=== PATIENT | male | born 1940 | race Two or more races ===

== ENCOUNTER 2018-11-09 00:35 | Inpatient (IN) | payer MEDICARE, OTHER ==
[~2018-11-09] VITALS: Ht 177.8 cm; Wt 79.4 kg
--- NOTE | 2018-11-09 01:15 | NUR ---
PT BIBA FROM [facility] FOR LOW BP, VS TAKEN, BP LOW, 88/53, 63, NO FACIAL GRIMANCING, AWAKE NONVERBAL, AWAITING FOR DR CAMPOS TO EVALUATE, PLACED ON ER BED 4.
[2018-11-09] MEDS ORDERED: ASPIRIN 300 MG/SUPP.RECT RC ONE ×2 (01:30→03:23)
[2018-11-09] MEDS ORDERED: IV NS 0.9% 1,000 ML BAG IV ONE ×3 (01:30→05:00)
[2018-11-09 02:08] LABS: BASOPHILS # (AUTO) 0.1 /CMM (0.0-0.2); BASOPHILS % (AUTO) 0.5 % (0.0-2.0); EOSINOPHILS % (AUTO) 0.2 % (0.0-6.0); HEMATOCRIT 35 % (39-51); HEMOGLOBIN 11.9 g/dL (13.5-17.5); LYMPHOCYTES % (AUTO) 16.3 % (20.0-44.0); MEAN CORPUSCULAR HGB CONC 34 g/dl (31.0-36.0); MEAN CORPUSCULAR VOLUME 98 fL (80-96); MONOCYTES # (AUTO) 1.4 /CMM (0.1-1.30); MONOCYTES % (AUTO) 11.7 % (2.0-12.0); NEUTROPHILS # (AUTO) 8.7 /CMM (1.8-8.9); NEUTROPHILS % (AUTO) 71.3 % (43.0-81.0); PLATELET COUNT (AUTO) 217 /CMM (150-450); RED BLOOD CELL COUNT(AUTO) 3.63 MIL/uL (4.5-6.0); WHITE BLOOD COUNT (AUTO) 12.3 K/uL (4.3-11.0)
[2018-11-09 02:20] LABS: CALCIUM, SERUM 9.2 mg/dL (8.5-10.1); CARBON DIOXIDE 25 mmol/L (21-32); CHLORIDE 101 mmol/L (98-107); CREATININE 1.1 mg/dL (0.6-1.3); GLUCOSE 118 mg/dL (74-106); POTASSIUM 4.4 mmol/L (3.5-5.1); SODIUM SERUM 135 mmol/L (136-145); UREA NITROGEN, BLOOD 49 mg/dL (7-18)
[2018-11-09 02:26] LABS: ALANINE AMINOTRANSFERASE 45 U/L (12-78); ALBUMIN 2.3 g/dL (3.4-5.0); ALKALINE PHOSPHATASE 105 U/L (46-116); ASPARTATE AMINOTRANSFERASE 33 U/L (15-37); BILIRUBIN,DIRECT 0.2 mg/dL (0.0-0.2); BILIRUBIN,TOTAL 0.6 mg/dL (0.2-1.0); TOTAL PROTEIN, SERUM 7.7 g/dL (6.4-8.2)
[2018-11-09 02:54] LABS: APPEARANCE,URINE CLEAR (CLEAR); BILIRUBIN,URINE NEGATIVE (NEGATIVE); BLOOD, URINE NEGATIVE Ery/uL (NEGATIVE); COLOR,URINE YELLOW (YELLOW); KETONES,URINE TRACE (NEGATIVE); LEUKOCYTE ESTERASE ,URINE NEGATIVE (NEGATIVE); NITRITE, URINE NEGATIVE (NEGATIVE); PH,URINE 6.5 (5.0-8.0); PROTEIN,URINE TRACE mg/dl (NEGATIVE); UGLUCOSE NEGATIVE (NEGATIVE); UROBILINOGEN,URINE 0.2 EU/dL (0.2)
[2018-11-09 03:04] LABS: BACTERIA,URINE None seen /HPF (None Seen); RBC,URINE NONE SEEN /HPF (0-2); SQUAMOUS EPITHELIAL CELL,UR Few /HPF (None Seen); WBC,URINE 0-2 /HPF (0-3)
[2018-11-09] MEDS ORDERED: PIPERACILLIN /TAZOBACTAM 3.375 G VIAL IV ONE (04:29)
[2018-11-09] MEDS ORDERED: PIPERACILLIN /TAZOBACTAM 3.375 G in IV D5W 50 ML IV ONE (04:30)
--- NOTE | 2018-11-09 06:24 | NUR ---
PAGED DR. JOHNSON FOR ADMIT ORDERS
--- NOTE | 2018-11-09 06:25 | NUR ---
SPOKE TO DR. ALEX MASON RECEIVE NEW ORDERS READ BACK AND VERIFIED ORDERS NOTED AND CARRIED OUT PER DR. JOHNSON RESUMGini GT FEEDING AT [facility] AND HE WILL SEE THE PT AND REVIEW THE MEDICATION RECONCILIATION LATER.
[2018-11-09 06:30] VITALS: BP 118/67
--- NOTE | 2018-11-09 06:57 | NUR ---
MS RN NOTES RECEIVE PT FROM [facility] AT 0615 VIA FRANDY, ADMIT TO TELEMETRY, SR 77 WITH PVC'S PT AWAKE NON VERBAL, VS STABLE. TOLERATING ROOM AIR 98%, RESPIRATIONS EVEN AND UNLABORED, KEPT CLEAN AND DRY AND COMFORTABLE, HEAD TO TOE ASSESSMENT IS DONE. WILL ENDORSE TO THE NEXT SHIFT FOR FULL ADMISSION.
[2018-11-09] MEDS ORDERED: IV NS 0.9% 1,000 ML BAG IV PRN (07:00)
--- NOTE | 2018-11-09 07:30 | NUR ---
RN OPENING NOTES RECEIVED PATIENT IN BED SLEEPING. NONVERBAL, RESPONSIVE. IN STABLE CONDITION, NO ACUTE DISTRESS, NO SOB, NO S/S OF PAIN OR DISCOMFORT. KEPT PATIENT SAFE AND COMFORTABLE. BED IN LOW/LOCKED POSITION, SIDERAILS UPX2, CALL LIGHT IN REACH, HOB ELEVATED. WILL CONTINUE TO MONIOTR ACCORDINGLY.
[2018-11-09 08:06] VITALS: BP 129/60
--- NOTE | 2018-11-09 08:45 | NUR ---
ENDORSED TO ADÁN JOHNSON FOR CURTIS. PATIENT IN STABLE CONDITION.
--- NOTE | 2018-11-09 09:30 | NUR ---
RECEIVED REPORT FROM ADÁN MEYER
[2018-11-09] MEDS: CEFTRIAXONE 1 G in IV D5W 50 ML IV SCH (10:00)
--- NOTE | 2018-11-09 10:00 | NUR ---
PT NON-RESPONSIVE WITH OPEN EYES. VS ARE STABLE , PT ON TELE WITH SR 80-82. NO RESPIRATORY DISTRESS NOTED. NO S/S OF PAIN NOTED. PT HAS G-TUBE IN PLACE, BLEEDING ON THE SITE NOTED. CLEANED SIDE WITH NS AND APPLIED NON-WOVEN DRAIN SPONGES. WILL OBSERVE .
[2018-11-09] MEDS: JEVITY 1.2 CAL 1,000 ML BOTTLE GT PRN (10:03)
[2018-11-09] MEDS: IV NS 0.9% 1,000 ML IV PRN (10:05)
[2018-11-09] MEDS ORDERED: ARGI1POW13 GT (12:55)
[2018-11-09] MEDS ORDERED: ZINC220T PO (12:55)
[2018-11-09] MEDS ORDERED: BISA-79 PO (12:55)
[2018-11-09] MEDS ORDERED: FERR220S17 GT (12:55)
[2018-11-09] MEDS ORDERED: ASCO500T9 PO (12:55)
[2018-11-09] MEDS ORDERED: ESOM20SU GT (12:55)
[2018-11-09] MEDS ORDERED: MULT-213 PO (12:55)
--- NOTE | 2018-11-09 13:50 | NUR ---
DR. JOHNSON AT THE BEDSIDE. VERBAL ORDER FOR WOUND CONSULT AND FEEDING TUBE RATE 60ML/HR.
[2018-11-09 15:53] VITALS: BP 112/56
--- NOTE | 2018-11-09 18:43 | NUR ---
PT NON-VERBAL WITH OPEN EYES, BREATHING UNLABORED ON ROOM AIR, VS ARE STABLE, NO FEVER DURING THIS SHIFT. PT ON G-TUBE FEEDING AT 60ML/HR , IV FLUID NS RUNNING AT 50ML/HR. WOUND CONSULT REQUESTED. PT KEPT KLEEN AND DRY , TURNED AND REPOSITIONED Q2H. WILL ENDORSE TO NEXT SHIFT FOR CURTIS.
--- NOTE | 2018-11-09 19:30 | NUR ---
MS RN OPENING NOTES: RECEIVED PT ON ROOM AIR AND IS IN SEMI-ASHLEY'S POSITION. PT IS NONVERBAL BUT ABLE TO OPEN EYES. PT HAS IV ON BROOK AND IS NOTED INFILTRATED AND SWELLING. WILL REMOVE AND ELEVATE WITH PILLOW. NEW IV TO BE STARTED SOON. PT ALSO HAS G TUBE FEEDING. 5ML OF RESIDUAL NOTED. HAS BEEN FLUSHED WITH WATER. PT ON JEVITY FEEDING AT 60ML/HR. IV FLUIDS NS TO BE RESUMED AT 50ML/HR. BED KEPT IN LOW, LOCKED POSITION, AND SIDE RAILS X 2UP. BED ALARM ACTIVATED. WILL CONTINUE TO MONITOR PT.
[2018-11-09 20:07] VITALS: BP 105/66
--- NOTE | 2018-11-10 07:34 | NUR ---
MS RN CLOSING NOTES: ALL NEEDS WERE ATTENDED AND ANTICIPATED FOR. PT KEPT CLEAN, DRY, AND COMFORTABLE. BOOTS REMAINS IN BILATERAL FEET. WOUND CONSULT FOR TODAY PER MD JOHNSON. IV REMAINS INTACT AND IS BEING INFUSED WITH IV NS AT 50ML/HR. PT HAS G TUBE AND HAS BEEN FLUSHED. 5ML OF RESIDUAL NOTED. PT ON G TUBE JEVITY AT 60ML/HR. PT IN SEMI-ASHLEY'S POSITION. BED KEPT IN LOW, LOCKED POSITION, AND SIDE RAILS X 2 UP. ENDORSED TO AM NURSE FOR CURTIS.
--- NOTE | 2018-11-10 07:55 | NUR ---
RN OPENING NOTE RECEIVED PT. PT STABLE RESTING IN BED. NO S/S OF RESP DISTRESS/SOB. PT DOES NOT APPEAR TO BE IN PAIN. PT IS NON-VERBAL UNABLE TO LISTEN TO COMMAND/RESPOND. GT IN PLACE, PATENT, FEEDING OF JEVITY 1.2 RUNNING AT 60 CC/HR. IV ACCESS LOCATED ON LEFT HAND 24G, CURRENTLY INFUSING NS AT 50 ML/HR. SAFETY MEASURES IN PLACE, CALL LIGHT WITHIN REACH. WILL CONTINUE TO MONITOR.
[2018-11-10 08:00] VITALS: BP 122/57
[2018-11-10 08:07] LABS: THYROID STIMULATING HORMONE 3.76 uIU/mL (0.358-3.74); URIC ACID 3.9 mg/dL (2.6-7.2)
[2018-11-10] MEDS: CEFTRIAXONE 1 G in IV D5W 50 ML IV SCH (08:41)
[2018-11-10] MEDS: IV NS 0.9% 1,000 ML IV PRN (08:51)
--- NOTE | 2018-11-10 12:27 | NUR ---
WOUND CARE CONSULT: PT PRESENTS WITH BILATERAL LATERAL ANKLE ULCERS AND LEFT SHOULDER SCAR, PRESENT ON ADMISSION. RECOMMENDATIONS MADE FOR SKIN PROTECTION AND DISCUSSED WITH NURSING STAFF. RECOMMEND DPM CONSULT. G TUBE SITE HAS HYPERGRANULAR TISSUE. PT IS INCONTINENT AND HAS LOWER EXTREMITY CONTRACTURES. WILL SEE PRN. CURRENT CHESTER SCORE IS 13. MD IN AGREEMENT WITH PLAN OF CARE. Addendum: 11/10/18 at 1229 by VONDA DUNAWAYU Amended: Links added. Addendum: 11/10/18 at 1231 by VONDA DUNAWAYU DEFER TO DPM FOR LOWER EXTREMITY WOUND TREATMENT PLAN.
[2018-11-10] MEDS: Z GUARD REMEDY 2 OZ OINT TP SCH (12:30)
[2018-11-10] MEDS ORDERED: Z GUARD REMEDY 2 OZ OINT TP PRN (12:30)
[2018-11-10 16:05] VITALS: BP 110/60
--- NOTE | 2018-11-10 18:54 | NUR ---
RN CLOSING NOTE PT IN BED RESTING. NO S/S OF RESP DISTRESS. PT DOES NOT APPEAR TO BE IN PAIN. PER MD PULIDO PT TO HAVE BLE WOUND DEBRIDEMENT, OBTAIN CONSENT. NO FAMILY MEMBERS LISTED IN FACE SHEET. NO DPOA. WILL F/U WITH MD JOHNSON FOR OBTAINING CONSENT. ALL PT NEEDS ANTICIPATED AND MET, SAFETY MEASURES IN PLACE, CALL LLIGHT WITHIN REACH. WILL ENDORSE TO TRUCK TERMINAL MANAGER FOR CURTIS.
--- NOTE | 2018-11-10 19:20 | NUR ---
MS RN OPENING NOTE Patient was seen in bed lying in high cleveland's position; he is awake but non-verbal, responsive to touch, but cannot follow commands. NS at 50ml/hr is running through the IV in the left hand with no signs of leaking or infiltration. Jevity tube feed is running at 60ml/hr. Bilateral heels are offloaded. Patient appears comfortable in bed. Bed is low/locked for safety, three side rails up, and bed alarm on. Will continue to monitor.
[2018-11-10 20:00] VITALS: BP 142/75
[2018-11-11] MEDS: IV NS 0.9% 1,000 ML IV PRN (04:42)
[2018-11-11] MEDS: JEVITY 1.2 CAL 1,000 ML BOTTLE GT PRN ×2 (04:43→21:58)
[2018-11-11] MEDS: Z GUARD REMEDY 2 OZ OINT TP SCH (06:05)
[2018-11-11] MEDS: ALBUTEROL HALF STRENGTH 1.25 MG/3 ML VIAL.NEB NEB PRN ×2 (06:18→15:48)
--- NOTE | 2018-11-11 07:21 | NUR ---
MS RN CLOSING NOTE All patient needs attended to. Patient is comfortable in bed with no s/s of acute distress. Patient care endorsed to day shift RN.
[2018-11-11 08:00] VITALS: BP 129/82
[2018-11-11] MEDS ORDERED: HYDROGEL DRESSING 90 GM TUBE TP PRN (08:00)
[2018-11-11] MEDS: CEFTRIAXONE 1 G in IV D5W 50 ML IV SCH (08:29)
--- NOTE | 2018-11-11 09:30 | NUR ---
INFORMED PHARMACY REGARDING HYDROGEL SUPPLY, PHARMACY WILL PROVIDE
[2018-11-11] MEDS: HYDROGEL DRESSING 90 GM TUBE TP SCH (10:03)
--- NOTE | 2018-11-11 10:08 | NUR ---
MS MCCAIN NOTES RECEIVED PATIENT IN STABLE CONDITION, IN NO APPARENT DISTRESS, BED SIDE RAILS UP X2, BED IS LOCKED AND LOWERED, IV LINE IS INTACT AND PATENT, CALL LIGHT IS WITHIN REACH, WILL CONTINUE TO MONITOR PATIENT Addendum: 11/11/18 at 1010 by MERNA ABDI RN THIS NOTE IS FOR [id number]
[2018-11-11 10:49] LABS: CALCIUM, SERUM 8.4 mg/dL (8.5-10.1); CARBON DIOXIDE 21 mmol/L (21-32); CHLORIDE 108 mmol/L (98-107); CREATININE 0.8 mg/dL (0.6-1.3); GLUCOSE 113 mg/dL (74-106); POTASSIUM 4.1 mmol/L (3.5-5.1); SODIUM SERUM 141 mmol/L (136-145); UREA NITROGEN, BLOOD 30 mg/dL (7-18)
[2018-11-11 10:52] LABS: BASOPHILS % (AUTO) 0.4 % (0.0-2.0); EOSINOPHILS % (AUTO) 4.4 % (0.0-6.0); HEMATOCRIT 32 % (39-51); HEMOGLOBIN 10.7 g/dL (13.5-17.5); LYMPHOCYTES # (AUTO) 1.6 /CMM (0.8-4.8); LYMPHOCYTES % (AUTO) 19.8 % (20.0-44.0); MEAN CORPUSCULAR HGB CONC 34 g/dl (31.0-36.0); MEAN CORPUSCULAR VOLUME 98 fL (80-96); MONOCYTES # (AUTO) 0.9 /CMM (0.1-1.30); MONOCYTES % (AUTO) 10.9 % (2.0-12.0); NEUTROPHILS # (AUTO) 5.2 /CMM (1.8-8.9); NEUTROPHILS % (AUTO) 64.5 % (43.0-81.0); PLATELET COUNT (AUTO) 218 /CMM (150-450); RED BLOOD CELL COUNT(AUTO) 3.22 MIL/uL (4.5-6.0); WHITE BLOOD COUNT (AUTO) 8.1 K/uL (4.3-11.0)
[2018-11-11 12:11] LABS: *SPE A/G RATIO 0.6 (0.7-1.7); *SPE ALBUMIN 2.4 g/dL (2.9-4.4); *SPE ALPHA-1-GLOBULIN 0.4 g/dL (0.0-0.4); *SPE BETA GLOBULIN 1.3 g/dL (0.7-1.3); *SPE GLOBULIN, TOTAL 3.8 g/dL (2.2-3.9); *SPE M-SPIKE Not Observed g/dL (Not Observed); *SPEGAMMA GLOBULIN 1.1 g/dL (0.4-1.8)
[2018-11-11 16:00] VITALS: BP 108/66
[2018-11-11] MEDS: FUROSEMIDE 20 MG/2 ML VIAL IV SCH (17:02)
--- NOTE | 2018-11-11 18:45 | NUR ---
MS RN CLOSING NOTES PATIENT IS IN STABLE CONDITION. IN NO APPARENT DISTRESS. BEDSIDE RAILS ARE UPX2. BED IS LOCKED AND LOWERED. CALL LIGHT IS WITHIN REACH. IV LINE IS INTACT AND PATENT. ALL NEEDS WERE MET. WILL ENDORSE CARE TO SHOE FOLDER NURSE FOR CURTIS.
--- NOTE | 2018-11-11 19:15 | NUR ---
MS ELLIE INITIAL NOTES' RECEIVED REPORT FROM AM NURSE MERNA WHILE CHECKING THE PATIENT WELL. HE'S RESTING AT THIS TIME WITH EYES CLOSED , OPEN WHEN YOU TOUCH HIM, NON-VERBAL ,BREATHING EVEN AND NON-LABORED ,NO SIGNS OF ANY ACUTE DISTRESS NOTED, STILL ON G-TUBE FEEDING JEVITY AT 75ML/HR, NO RESIDUAL AND NO ASPIRATION NOTED. SKIN WARM AND DRY TO TOUCH. HOB ELEVATED FOR ASPIRATION PRECAUTION. BOTH UPPER AND LOWER EXTREMITIES CONTRACTED. HEPLOCK ONLY AT THIS TIME PATENT AND INTACT. KEPT HIM WARM AND COMFORTABLE AT ALL TIMES. WILL CONTINUE MONITORING. BED IN LOW AND LOCK IN POSITION WITH SIDE RAILS X2 UP.
[2018-11-11] MEDS: ALBUTEROL HALF STRENGTH 1.25 MG/3 ML VIAL.NEB NEB SCH ×2 (19:47→23:22)
[2018-11-11 20:00] VITALS: BP 107/56
[2018-11-12] MEDS: ALBUTEROL HALF STRENGTH 1.25 MG/3 ML VIAL.NEB NEB SCH ×6 (03:08→23:51)
[2018-11-12 06:12] LABS: CALCIUM, SERUM 8.2 mg/dL (8.5-10.1); CARBON DIOXIDE 24 mmol/L (21-32); CHLORIDE 108 mmol/L (98-107); CREATININE 0.9 mg/dL (0.6-1.3); GLUCOSE 130 mg/dL (74-106); POTASSIUM 4.1 mmol/L (3.5-5.1); SODIUM SERUM 140 mmol/L (136-145); UREA NITROGEN, BLOOD 30 mg/dL (7-18)
[2018-11-12 06:18] LABS: BASOPHILS % (AUTO) 0.5 % (0.0-2.0); EOSINOPHILS % (AUTO) 4.1 % (0.0-6.0); HEMATOCRIT 32 % (39-51); LYMPHOCYTES # (AUTO) 1.6 /CMM (0.8-4.8); LYMPHOCYTES % (AUTO) 19.9 % (20.0-44.0); MEAN CORPUSCULAR HGB CONC 34 g/dl (31.0-36.0); MEAN CORPUSCULAR VOLUME 99 fL (80-96); MONOCYTES # (AUTO) 0.9 /CMM (0.1-1.30); MONOCYTES % (AUTO) 11.7 % (2.0-12.0); NEUTROPHILS # (AUTO) 5.2 /CMM (1.8-8.9); NEUTROPHILS % (AUTO) 63.8 % (43.0-81.0); PLATELET COUNT (AUTO) 207 /CMM (150-450); RED BLOOD CELL COUNT(AUTO) 3.28 MIL/uL (4.5-6.0); WHITE BLOOD COUNT (AUTO) 8.1 K/uL (4.3-11.0)
--- NOTE | 2018-11-12 06:50 | NUR ---
MS COMPLETION MANAGER CLOSING NOTES PT SLEEPING AT THIS TIME , RESPIRATION EVEN AND UNLABORED NOT IN ANY ACUTE DISTRESS NOTED. G-TUBE TOLERATED WELL SAVITA THE NIGHT, NO ASPIRATION NOTED. MORNING CARE RENDERED WITH THE HELPED OF DARELL ZAMBRANO WELL SKIN CARE. REPOSITION HIM FOR COMFORT. ON SEMI FOWLERS POSITION WITH SIDE RAILS X2 UP AND BED IN LOW AND LOCK IN POSITION. KEPT HIM WARM AND COMFORTABLE AT ALL TIMES, STABLE SAVITA THE NIGHT . ENDORSE TO AM NURSE FOR CONTINUITY OF CARE.
[2018-11-12 08:00] VITALS: BP 124/68
--- NOTE | 2018-11-12 08:00 | NUR ---
RN NOTES RECEIVED PATIENT IN THE BED NONVERBAL, CONFUSED, PATIENTS EYES IS OPEN. PATIENT HAS NO ACUTE RESPIRATORY DISTRESS, COUGHING. PATIENT TOTAL CARE. RESIDUAL, AND PLACEMENT CHECKED. SCHEDULED MEDICATION ADMINISTERED VIA G-TUBE, PATIENT HAS IV ACCESS ON RIGHT HAND INTACT, ASSIST PATIENT TURN AND REPOSTION Q 2 HR, NEEDS ATTENDED AND ANTICIPATED, CALL LIGHT WITHIN TO REACH, CONTINUED MONITORING.
[2018-11-12] MEDS: FUROSEMIDE 20 MG/2 ML VIAL IV SCH (09:15)
[2018-11-12] MEDS: CEFTRIAXONE 1 G in IV D5W 50 ML IV SCH (09:16)
[2018-11-12] MEDS: Z GUARD REMEDY 2 OZ OINT TP SCH (09:19)
[2018-11-12] MEDS: HYDROGEL DRESSING 90 GM TUBE TP SCH (11:25)
[2018-11-12] MEDS ORDERED: ACETAMINOPHEN 325 MG TABLET PO PRN (11:30)
--- NOTE | 2018-11-12 11:40 | NUR ---
RN NOTES UA/UC SPACEMEN TAKEN, CALLED LAB FOR SADDLE CUTTER.
--- NOTE | 2018-11-12 11:53 | NUR ---
rn notes administered tylenol 650 mg prn via GT for fever T-99.4 F. continued monitoring.
--- NOTE | 2018-11-12 13:00 | NUR ---
RN NOTES RECHECKED T-98.7 F, PATIENT RESTING IN THE BED, ASSIST TURN AND REPOSTION Q 2 HR. HOB ELEVATED FOR ASPIRATION PRECAUTION, CALL LIGHT WITHIN TO REACH. CONTINUED MONITORING.
[2018-11-12 16:00] VITALS: BP 103/62
[2018-11-12 16:37] LABS: APPEARANCE,URINE SL CLOUDY (CLEAR); BILIRUBIN,URINE NEGATIVE (NEGATIVE); BLOOD, URINE NEGATIVE Ery/uL (NEGATIVE); COLOR,URINE YELLOW (YELLOW); KETONES,URINE NEGATIVE (NEGATIVE); LEUKOCYTE ESTERASE ,URINE NEGATIVE (NEGATIVE); NITRITE, URINE NEGATIVE (NEGATIVE); PH,URINE 6.5 (5.0-8.0); PROTEIN,URINE NEGATIVE (NEGATIVE); UGLUCOSE NEGATIVE (NEGATIVE); UROBILINOGEN,URINE 0.2 EU/dL (0.2)
[2018-11-12] MEDS: JEVITY 1.2 CAL 1,000 ML BOTTLE GT PRN (17:23)
--- NOTE | 2018-11-12 18:30 | NUR ---
RN NOTES PATIENT STABLE, NO ACUTE RESPIRATORY DISTRESS, V/S STABLE, ASSIST TURN AND REPOSTION Q 2 HR. CONTINUED JEVITY GT FEEDING AT 75 ML/HR INTACT, KEEP HOB ELEVATED. CALL LIGHT WITHIN TO REACH, NEEDS ATTENDED AND ANTICIPATED, ENDORSED ONCOMING NURSE FOR PLAN OF CARE.
--- NOTE | 2018-11-12 19:00 | NUR ---
MS ELLIE INITIAL NOTES RECEIVED REPORT FROM AM NURSE CHIVO/RN WHILE CHECKING THE PT AT THE SAME TIME, PT RESTING AT THIS TIME NON-VERBAL BUT OPEN HIS EYES WHILE YOU TOUCH HIM AND HEARD SOME SOUNDS. HE STILL ON G-TUBE FEEDING JEVITY AT 75ML/HR WITH 1 ML RESIDUAL NOTED. NO ASPIRATION , BREATHING EVEN AND UNLABORED NOT IN ANY ACUTE DISTRESS NOTED. SKIN WARM AND DRY TO TOUCH. KEPT HIM HOB ELEVATED AND WARM AT ALL TIMES. WILL CONTINUE MONITORING.
[2018-11-12 20:00] VITALS: BP 99/61
--- NOTE | 2018-11-12 23:45 | NUR ---
MS ELLIE NOTES PT SLEEPING AT THIS TIME , RESPIRATION EVEN AND UNLABORED, NOT IN ANY ACUTE DISTRESS NOTED. G-TUBE FEEDING TOLERATED WELL NO ASPIRATION NOTED.REPOSITION HIM AND KEPT HIM WARM AND COMFORTABLE AT ALL TIMES. WILL CONTINUE MONITORING.
[2018-11-13] MEDS: ALBUTEROL HALF STRENGTH 1.25 MG/3 ML VIAL.NEB NEB SCH ×5 (03:11→20:02)
[2018-11-13] MEDS: JEVITY 1.2 CAL 1,000 ML BOTTLE GT PRN ×2 (06:22→21:41)
--- NOTE | 2018-11-13 06:51 | NUR ---
MS FARM PRODUCT PURCHASER CLOSING NOTES PT SLEEPING COMFORTABLY IN BED WITH NO SIGNS OF ANY ACUTE DISTRESS NOTED. STABLE SAVITA THE NIGHT AND SLEPT WELL . G-TUBE FEEDING TOLERATED WELL NO ASPIRATION NOTED. MORNING CARE DONE AND ALL NEEDS MET. KEPT HIM WARM AND COMFORTABLE AT ALL TIMES. KEPT HIM ON SEMI FOWLERS POSITION WITH SIDE RAILS X2 UP AND BED ALARM SET FOR PT SAFETY. WILL ENDORSE TO AM NURSE FOR CONTINUITY OF CARE.
--- NOTE | 2018-11-13 07:50 | NUR ---
RN OPENING NOTES RECEIVED PT. PT STABLE AND RESTING IN BED. NO S/S OF RESP DISTRESS/SOB. NO C/O PAIN. PT IS NON-VERBAL, UNABLE TO FOLLOW COMMANDS. GT PATENT, WITH RESIDUAL <10CC OF JEVITY 1.2 FEEDING. IV FLUIDS HELD DUE TO POTENTIAL FLUID OVERLOAD INDICATED BY WHEEZING UPON AUSCULTATION, MD AWARE. SAFETY MEASURES IN PLACE, CALL LIGHT WITHIN REACH. WILL CONTINUE TO MONITOR.
[2018-11-13 08:00] VITALS: BP 132/65
[2018-11-13] MEDS: FUROSEMIDE 20 MG/2 ML VIAL IV SCH (08:57)
[2018-11-13] MEDS: CEFTRIAXONE 1 G in IV D5W 50 ML IV SCH (08:58)
[2018-11-13] MEDS: Z GUARD REMEDY 2 OZ OINT TP SCH (09:00)
[2018-11-13] MEDS: HYDROGEL DRESSING 90 GM TUBE TP SCH (09:25)
[2018-11-13] MEDS ORDERED: FEE PK DOSING 1 MIN EA MC ONE (12:15)
[2018-11-13] MEDS ORDERED: VANCOMYCIN 1 GM in IV D5W 250 ML IV ONE (13:00)
[2018-11-13 13:39] LABS: CALCIUM, SERUM 8.8 mg/dL (8.5-10.1); CARBON DIOXIDE 25 mmol/L (21-32); CHLORIDE 106 mmol/L (98-107); CREATININE 0.9 mg/dL (0.6-1.3); GLUCOSE 121 mg/dL (74-106); POTASSIUM 4.1 mmol/L (3.5-5.1); SODIUM SERUM 141 mmol/L (136-145); UREA NITROGEN, BLOOD 34 mg/dL (7-18)
[2018-11-13 16:00] VITALS: BP 119/65
--- NOTE | 2018-11-13 18:27 | NUR ---
RN CLOSING NOTE PT IN BED RESTING. NO S/S OF RESP DISTRESS/SOB. GT FEEDING INFUSING JEVITY 1.2 AT 75 CC/HR. NO RESIDUAL.. SAFETY MEASURES IN PLACE, CALL LIGHT WITHIN REACH. WILL ENDORSE TO LEAD SHIPPER FOR CURTIS.
--- NOTE | 2018-11-13 19:40 | NUR ---
RN INITIAL NOTES: RECEIVED REPORT FROM DARRELL MCCAIN. PT IN BED, AWAKE, NON VERBAL, RESPIRATION EVEN AND UNLABORED. IV ACCESS PATENT AND FLUSHING WELL, INFUSING WITH NS AT TKO. BLE OFFLOADED. GTUBE IN PLACED, RECEIVING FEEDING OF JEVITY 1.2 AT 75ML/HR. SUCTION SET UP IN PLACED. SAFETY PRECAUTIONS FOR FALL INITIATED, CALL LIGHT IN REACH, WILL CONTINUE MONITORING PT.
[2018-11-13 20:00] VITALS: BP 106/96
--- NOTE | 2018-11-13 20:30 | NUR ---
GTUBE PATENCY AND RESIDUAL CHECK: ABDOMEN SOFT TO TOUCH WITH ACTIVE BOWEL SOUND HEARD UPON AUSCULTATION OF THE ABDOMEN, NO RESIDUAL OBTAINED.
[2018-11-14] MEDS: ALBUTEROL HALF STRENGTH 1.25 MG/3 ML VIAL.NEB NEB SCH ×7 (03:40→23:26)
--- NOTE | 2018-11-14 06:44 | NUR ---
rn closing notes: pt remains be non verbal/non communicative, with periodic episode of hacking cough, breathing treatment q4h as scheduled. iv access remains patent and flushing well, on hl. ble kept offloaded. ordered kci, awaiting to be deliver. vs remains stable, needs attended. safety precautions for fall remains engaged, call light in reach, will endorse to day rn for continuity of care.
[2018-11-14 07:22] LABS: CALCIUM, SERUM 8.8 mg/dL (8.5-10.1); CARBON DIOXIDE 23 mmol/L (21-32); CHLORIDE 105 mmol/L (98-107); CREATININE 0.9 mg/dL (0.6-1.3); GLUCOSE 133 mg/dL (74-106); POTASSIUM 4.4 mmol/L (3.5-5.1); SODIUM SERUM 139 mmol/L (136-145); UREA NITROGEN, BLOOD 37 mg/dL (7-18)
--- NOTE | 2018-11-14 07:46 | NUR ---
MS RN OPENING NOTES RECEIVED PATIENT IN STABLE CONDITION. IN NO APPARENT DISTRESS. BEDSIDE RAILS ARE UPX2. BED IS LOCKED AND LOWERED. CALL LIGHT IS WITHIN REACH. G TUBE FEEDING RUNNING AT 75MLS/HR. IV LINE IS INTACT AND PATENT. ALL NEEDS WERE MET. WILL CONTINUE TO MONITOR PATIENT.
[2018-11-14 08:00] VITALS: BP 85/62
[2018-11-14] MEDS: FUROSEMIDE 20 MG/2 ML VIAL IV SCH (09:00)
[2018-11-14] MEDS: Z GUARD REMEDY 2 OZ OINT TP SCH (09:21)
[2018-11-14] MEDS: HYDROGEL DRESSING 90 GM TUBE TP SCH (09:21)
[2018-11-14] MEDS: VANCOMYCIN 1.25 GM in IV D5W 250 ML IV SCH ×3 (13:00)
[2018-11-14 16:00] VITALS: BP 129/73
[2018-11-14] MEDS: JEVITY 1.2 CAL 1,000 ML BOTTLE GT PRN (17:16)
--- NOTE | 2018-11-14 18:28 | NUR ---
MS RN CLOSING NOTES PATIENT IS IN STABLE CONDITION. IN NO APPARENT DISTRESS. BEDSIDE RAILS ARE UPX2. BED IS LOCKED AND LOWERED. CALL LIGHT IS WITHIN REACH. IV LINE IS INTACT AND PATENT. WILL ENDORSE CARE TO AMPOULE FILLER AND SEALER NURSE FOR CURTIS.
[2018-11-14 20:00] VITALS: BP 99/47
[2018-11-15] MEDS: VANCOMYCIN 1.25 GM in IV D5W 250 ML IV SCH (01:54)
[2018-11-15] MEDS: ALBUTEROL HALF STRENGTH 1.25 MG/3 ML VIAL.NEB NEB SCH ×4 (04:56→15:18)
--- NOTE | 2018-11-15 07:57 | NUR ---
MS RN NOTES PATIENT RECEIVED RESTING INSIDE ROOM. SLEEPING, AROUSABLE THROUGH VERBAL AND TACTILE STIMULI. OPENS EYE-S TO STIMULI. PATIENT NON-VERBAL. BREATHING EVEN AND UNLABORED. NO ACUTE DISTRESS NOTED. GT PATENT AND IN PLACE. ONGOING GTF. MAINTAINED ASPIRATION PRECAUTIONS. WILL CONTINUE TO MONITOR. BED LOCKED AND IN LOW POSITION. BILATERAL UPPER SIDE RAILS UP AND LOCKED. CALL LIGHT WITHIN EASY REACH
[2018-11-15 08:00] VITALS: BP 105/60
[2018-11-15 08:01] LABS: CALCIUM, SERUM 8.2 mg/dL (8.5-10.1); CARBON DIOXIDE 23 mmol/L (21-32); CHLORIDE 105 mmol/L (98-107); CREATININE 0.9 mg/dL (0.6-1.3); GLUCOSE 123 mg/dL (74-106); POTASSIUM 4.4 mmol/L (3.5-5.1); SODIUM SERUM 138 mmol/L (136-145); UREA NITROGEN, BLOOD 36 mg/dL (7-18)
[2018-11-15] MEDS: FUROSEMIDE 20 MG/2 ML VIAL IV SCH (08:54)
[2018-11-15] MEDS: Z GUARD REMEDY 2 OZ OINT TP SCH (08:56)
[2018-11-15] MEDS: HYDROGEL DRESSING 90 GM TUBE TP SCH (08:57)
[2018-11-15] MEDS ORDERED: VANCOMYCIN IV SCH ×2 (12:00→13:00)
[2018-11-15] MEDS ORDERED: [UNRECOGNIZED DRUG - OTHER] IV SCH ×2 (12:00→13:00)
[2018-11-15] MEDS ORDERED: VANCOMYCIN 1.25 GM in IV D5W 500 ML IV SCH ×2 (12:00→13:00)
[2018-11-15 16:00] VITALS: BP 120/62
--- NOTE | 2018-11-15 16:11 | NUR ---
MS RN NOTES PATIENT FOR DISCHARGE TODAY. RECEIVED CALL FROM ENGINEERING MODEL MAKER THAT PATIENT WILL BE TRANSFERRED BACK TO [facility]. PLACED CALL TO [facility] ([phone]) AND GAVE REPORT TO TRINIDAD MCCAIN.
[2018-11-15 16:30] VITALS: BP 101/60
--- NOTE | 2018-11-15 16:49 | NUR ---
MS RN NOTES PATIENT FOR DISCHARGE TODAY. TRANSPORTATION PRESENT AT UNIT AT 1635. REPORT GIVEN. ALL BELONGINGS COMPLETE ON DISCHARGE, NO MISSING INVENTORY. NO ACUTE DISTRESS NOTED. NO COMPLAIN OF PAIN OR FACIAL GRIMACE NOTED. PATIENT LEFT UNIT AT 1645 IN STABLE CONDITION. NO NEW SKIN BREAKDOWN NOTED. MD AWARE OF DSICHARGE
== END 2018-11-15 16:50 | DRG 871 ==
LOC: ER 00:37 → TELE 05:31 → EDBD 05:31 → MED 09:00
PROVIDERS: ADMIT Internal Medicine; ATTEND Internal Medicine
DX: A41.9 Sepsis, unspecified organism (principal); L89.513 Pressure ulcer of right ankle, stage 3; L89.523 Pressure ulcer of left ankle, stage 3; J69.0 Pneumonitis due to inhalation of food and vomit; R53.2 Functional quadriplegia; N17.9 Acute kidney failure, unspecified; G93.40 Encephalopathy, unspecified; R64 Cachexia; F02.80 Dementia in other diseases classified elsewhere, unspecified severity, without behavioral disturbance, psychotic disturbance, mood disturbance, and anxiety; G30.9 Alzheimer's disease, unspecified; D63.8 Anemia in other chronic diseases classified elsewhere; E78.5 Hyperlipidemia, unspecified; I25.10 Atherosclerotic heart disease of native coronary artery without angina pectoris; K21.9 Gastro-esophageal reflux disease without esophagitis; M24.562 Contracture, left knee; M24.561 Contracture, right knee; I10 Essential (primary) hypertension; Z93.1 Gastrostomy status; Z68.25 Body mass index [BMI] 25.0-25.9, adult
CPT/HCPCS: 36415; 71045-TC; 80048-TC; 80076-TC; 80202-TC; 81000-TC; 82378; 82728-TC; 83540-TC; 83605-TC; 83615-TC; 84155; 84165; 84443-TC; 84484-TC; 84550-TC; 85025-TC; 85045-TC; 85652-TC; 85730-TC; 87040-TC; 87081-TC; 87086-TC; 87186-TC; 87400; 94760-TC; A4606; A6248; A6402; A6403; G0378; J0696; J1940; J2543; J3370; J7030; J7060; Z7610

== ENCOUNTER 2019-03-03 16:55 | Inpatient (IN) | payer MEDICARE, OTHER ==
[~2019-03-03] VITALS: Ht 180.3 cm; Wt 74.8 kg
[~2019-03-03 16:55] MED LIST: ARGI1POW13 GT; ASCO500T9 PO; BISA-79 PO; ESOM20SU GT; FERR220S18 GT; MULT-213 PO; ZINC220T PO
--- NOTE | 2019-03-03 17:02 | NUR ---
PT [id number], RESPIRATORY DISTRESS, ON CPAP, NOTED RESPIRATORY DISTRESS, HOOKED TO DATA MODELING SPECIALIST, RT AT BEDSIDE FOR BIPAP SET UP, KEPT RESTED AND COMFORTABLE, WILL CONTINUE TO MONITOR.
--- NOTE | 2019-03-03 17:10 | NUR ---
DR. CAMPOS AT BEDSIDE FOR EVAL.
[2019-03-03 17:17] VITALS: BP 110/58
--- NOTE | 2019-03-03 17:17 | NUR ---
RT NOTE: LATE ENTRY- PATIENT NT SUCTIONED TO OBTAIN LARGE AMOUNT OF THICK YELLOW/RUBALCAVA SECRETIONS. PER , PATIENT PLACED ON BIPAP. PATIENT TOLERATING WELL. ALARMS SET AND AUDIBLE. AMBU BAG AT [facility].
[2019-03-03] MEDS ORDERED: PIPERACILLIN /TAZOBACTAM 3.375 G in IV D5W 50 ML IV ONE (17:30)
[2019-03-03 17:35] LABS: BASOPHILS % (AUTO) 0.2 % (0.0-2.0); EOSINOPHILS % (AUTO) 1.1 % (0.0-6.0); HEMATOCRIT 38 % (39-51); HEMOGLOBIN 12.4 g/dL (13.5-17.5); LYMPHOCYTES # (AUTO) 1.1 /CMM (0.8-4.8); LYMPHOCYTES % (AUTO) 8.6 % (20.0-44.0); MEAN CORPUSCULAR HGB CONC 33 g/dl (31.0-36.0); MEAN CORPUSCULAR VOLUME 95 fL (80-96); MONOCYTES # (AUTO) 0.4 /CMM (0.1-1.30); MONOCYTES % (AUTO) 3.4 % (2.0-12.0); NEUTROPHILS # (AUTO) 11.2 /CMM (1.8-8.9); NEUTROPHILS % (AUTO) 86.7 % (43.0-81.0); PLATELET COUNT (AUTO) 354 /CMM (150-450); WHITE BLOOD COUNT (AUTO) 12.9 K/uL (4.3-11.0)
--- NOTE | 2019-03-03 17:35 | NUR ---
ER PHLEB AT BEDSIDE FOR BLOOD DRAW.
--- NOTE | 2019-03-03 17:40 | NUR ---
URINE SPECIMEN COLLECTED VIA ZAMORA CATH.
[2019-03-03 17:41] LABS: APPEARANCE,URINE Clear (CLEAR); BILIRUBIN,URINE Negative (NEGATIVE); BLOOD, URINE Negative Ery/uL (NEGATIVE); COLOR,URINE Yellow (YELLOW); KETONES,URINE Negative (NEGATIVE); LEUKOCYTE ESTERASE ,URINE Negative (NEGATIVE); NITRITE, URINE Negative (NEGATIVE); PH,URINE 7.5 (5.0-8.0); PROTEIN,URINE 30 mg/dl (NEGATIVE); UGLUCOSE Negative (NEGATIVE); UROBILINOGEN,URINE 0.2 EU/dL (0.2)
[2019-03-03 17:54] LABS: ALANINE AMINOTRANSFERASE 29 U/L (12-78); ALBUMIN 2.8 g/dL (3.4-5.0); ALKALINE PHOSPHATASE 122 U/L (46-116); ASPARTATE AMINOTRANSFERASE 29 U/L (15-37); BILIRUBIN,DIRECT 0.1 mg/dL (0.0-0.2); BILIRUBIN,TOTAL 0.3 mg/dL (0.2-1.0); CALCIUM, SERUM 9.5 mg/dL (8.5-10.1); CARBON DIOXIDE 28 mmol/L (21-32); CHLORIDE 101 mmol/L (98-107); CREATININE 1.1 mg/dL (0.6-1.3); GLUCOSE 157 mg/dL (74-106); POTASSIUM 4.6 mmol/L (3.5-5.1); SODIUM SERUM 136 mmol/L (136-145); TOTAL PROTEIN, SERUM 8.8 g/dL (6.4-8.2); UREA NITROGEN, BLOOD 33 mg/dL (7-18)
[2019-03-03 19:07] LABS: ABG BASE EXCESS 0.3 mmol/L; ABG OXYGEN SATURATION 93.8 % (92.0-98.5); ABG PCO2 41.5 mmHg (35.0-45.0); ABG PO2 76.3 mmHg (75.0-100.0); AaDO2 305.9 mmHg; COHb 0.1 % (0.5-1.5); MetHb 0.5 % (0.0-1.5); O2Hb 93.2 % (94.0-97.0)
[2019-03-03 19:10] VITALS: BP 134/77
--- NOTE | 2019-03-03 19:21 | NUR ---
REPORT GIVEN TO ADÁN VAZQUEZ FOR CURTIS.
[2019-03-03] MEDS ORDERED: IV NS 0.9% 500 ML BAG IV ONE (19:30)
[2019-03-03] MEDS ORDERED: IV NS 0.9% 1,000 ML BAG IV ONE ×2 (19:30)
--- NOTE | 2019-03-03 19:47 | NUR ---
CALLED NURSING SUP. FOR KIRSTIE BED
[2019-03-03] MEDS ORDERED: FURO20TA4 PO (19:55)
[2019-03-03] MEDS ORDERED: LANS30CA56 GT (19:55)
[2019-03-03] MEDS ORDERED: FERR300L GT (19:55)
[2019-03-03] MEDS ORDERED: APIX2.5T GT (19:55)
[2019-03-03] MEDS ORDERED: AMLO2.5T4 GT (19:55)
[2019-03-03] MEDS ORDERED: DIGO125T GT (19:55)
[2019-03-03] MEDS ORDERED: LACT-96 GT (19:55)
[2019-03-03] MEDS ORDERED: AMIN30LI27 GT (19:55)
--- NOTE | 2019-03-03 20:09 | NUR ---
KIRSTIE 105
[2019-03-03 20:40] VITALS: BP 136/73
--- NOTE | 2019-03-03 21:00 | NUR ---
KIRSTIE SUPERVISOR GROVE NOTES RECEIVED PATIENT FROM ER VIA [facility]. PATIENT OBTUNDED, OPENS EYES, NONVERBAL. PATIENT CURRENTLY ON BIPAP, BUT IS TACHYPNEIC. PER ER REPORT, THIS IS PATIENT'S BASELINE SINCE ARRIVAL, SPO2 WNL, WILL MONITOR CLOSELY. PATIENT WITH LEFT HAND #[id number], 2 LITERS FROM 2.5 LITER BOLUS FROM ER TO FINISH INFUSING NOW.
--- NOTE | 2019-03-03 21:30 | NUR ---
RN NOTES CALLED AND SPOKE TO DR MARLON JOHNSON TO OBTAIN ADMISSION ORDERS. ALL ORDERS READ BACK FOR CLARIFICATION. WILL CARRY OUT ALL NEW ORDERS AND MONITOR CLOSELY
[2019-03-03] MEDS ORDERED: ALBUTEROL HALF STRENGTH 1.25 MG/3 ML VIAL.NEB NEB PRN (22:00)
[2019-03-03] MEDS ORDERED: DOXYCYCLINE HYCLATE (100 MG) 100 MG TABLET GT SCH (23:00)
[2019-03-03] MEDS ORDERED: DOXYCYCLINE HYCLATE (100 MG) 100 MG TABLET GT ONE (23:00)
--- NOTE | 2019-03-03 23:00 | NUR ---
RN NOTES RECEIVED CALL FROM PHARMACY, SPOKE TO PIERRE REGARDING MEDICATIONS ELIQUIS AND DOXYCYCLINE. PER PIERRE, OKAY TO FOLLOW UP WITH MD WHEN HE ARRIVES AT BEDSIDE FOR EVALUATION TO CLARIFY ORDERS
[2019-03-03] MEDS ORDERED: CEFTRIAXONE 1 G VIAL ONE (23:23)
[2019-03-03] MEDS: CEFTRIAXONE 1 G in IV D5W 50 ML IV SCH (23:29)
[2019-03-03] MEDS: METOCLOPRAMIDE HCL 10 MG/2 ML VIAL IV SCH (23:29)
[2019-03-04] VITALS (7 sets, daily range): BP systolic 100–136; BP diastolic 43–69
[2019-03-04] MEDS: METOCLOPRAMIDE HCL 10 MG/2 ML VIAL IV SCH ×4 (05:32→23:05)
[2019-03-04] MEDS: JEVITY 1.2 CAL 1,000 ML BOTTLE GT PRN (05:33)
[2019-03-04 06:25] LABS: ALANINE AMINOTRANSFERASE 26 U/L (12-78); ALBUMIN 2.2 g/dL (3.4-5.0); ALKALINE PHOSPHATASE 83 U/L (46-116); ASPARTATE AMINOTRANSFERASE 37 U/L (15-37); B-TYPE NATRIURETIC PEPTIDE 15433 PG/ML (0-125); BILIRUBIN,TOTAL 0.4 mg/dL (0.2-1.0); CALCIUM, SERUM 9.1 mg/dL (8.5-10.1); CARBON DIOXIDE 23 mmol/L (21-32); CHLORIDE 106 mmol/L (98-107); CREATININE 1.4 mg/dL (0.6-1.3); GLUCOSE 97 mg/dL (74-106); POTASSIUM 5.1 mmol/L (3.5-5.1); SODIUM SERUM 142 mmol/L (136-145); TOTAL PROTEIN, SERUM 7.3 g/dL (6.4-8.2); UREA NITROGEN, BLOOD 37 mg/dL (7-18)
--- NOTE | 2019-03-04 06:30 | NUR ---
RN NOTES RECEIVED CALL FROM LAB REGARDING LACTIC ACID LEVEL OF 6.0, ELEVATED FROM 3.0. HR REMAINS IN THE 80s, NO FEVER NOTED. CHARGE NURSE NOTIFIED. CALLED LAB FOR STAT REDRAW (NOT REFLEX) TO CONFIRM LACTIC ACID LEVEL.
[2019-03-04 07:13] LABS: BASOPHILS % (AUTO) 0.2 % (0.0-2.0); HEMATOCRIT 30 % (39-51); HEMOGLOBIN 9.8 g/dL (13.5-17.5); LYMPHOCYTES # (AUTO) 0.7 /CMM (0.8-4.8); LYMPHOCYTES % (AUTO) 5.8 % (20.0-44.0); MEAN CORPUSCULAR HGB CONC 33 g/dl (31.0-36.0); MEAN CORPUSCULAR VOLUME 96 fL (80-96); MONOCYTES # (AUTO) 0.7 /CMM (0.1-1.30); MONOCYTES % (AUTO) 5.5 % (2.0-12.0); NEUTROPHILS # (AUTO) 10.9 /CMM (1.8-8.9); NEUTROPHILS % (AUTO) 88.5 % (43.0-81.0); PLATELET COUNT (AUTO) 285 /CMM (150-450); RED BLOOD CELL COUNT(AUTO) 3.16 MIL/uL (4.5-6.0); WHITE BLOOD COUNT (AUTO) 12.3 K/uL (4.3-11.0)
--- NOTE | 2019-03-04 07:49 | NUR ---
RT Pt taken off BiPAP and placed on 4L nasal cannula, tolerating well at this time. PRN HHN tx given due to slight expiratory wheezes. HHN tx tolerated well with no adverse reactions. Pt appears to be comfortable at this time with no SOB or respiratory distress. Charge nurse Moriah notified and aware. Addendum: 03/04/19 at 0751 by COLLEEN CUBA RT Amended: Links added.
[2019-03-04] MEDS ORDERED: PANTOPRAZOLE 40 MG/PACK PACK NG SCH (09:00)
[2019-03-04] MEDS ORDERED: IV D5/ 0.9% NACL 1,000 ML IV PRN (09:30)
--- NOTE | 2019-03-04 09:30 | NUR ---
TD/RN AM SHIFT INITIAL NOTES RECEIVED PT ASLEEP IN BED, NO ACUTE CHANGE OF CONDITION NOTED, PT NON-VERBAL NO GRIMACING NOTED, ON VENTURI MASK WITH 35% FIO2, LUNG SOUNDS RHONCHI. ON TELE MONITORING WITH SINUS RHYTHM, HR 100%. IV SITE ON TKO, PATENT WITH NO S/S OF INFECTION. ON GOING GT FEEDING @ 40CC/HR, NO GASTRIC RESIDUAL NOTED, FLUSHED, PATENT. PT IS COMFORTABLE, SCHEDULED AM MEDS TO BE GIVEN, CL WITHIN REACHED AND SAFETY MAINTAINED. ON GOING MONITORING. Addendum: 03/04/19 at 1058 by PHYLLIS GERMAIN RN ADDENDUM: ZAMORA CATHETER INTACT WITH CLEAR YELLOW URINE OUTPUT. Addendum: 03/04/19 at 1127 by PHYLLIS GERMAIN RN ERROR IN CHARTING: PT RECEIVED WITH G-TUBE FEEDING @ 10CC/HR.
[2019-03-04] MEDS: PANTOPRAZOLE 40 MG/PACK PACK GT SCH (09:47)
[2019-03-04] MEDS: AMLODIPINE BESYLATE 2.5 MG TABLET GT SCH (09:47)
[2019-03-04] MEDS: APIXABAN 2.5 MG TABLET GT SCH ×2 (10:16→18:02)
--- NOTE | 2019-03-04 11:11 | NUR ---
TELE1/RN ROUNDS - DR. JOHNSON UPDATED PT'S CONDITION. PT SEEN & EXAMINED BY DR. JOHNSON, WITH NEW ORDERS TO CHANGE IV FLUIDS TO NS WITH SAME RATE @ 75CC/HR, ORDER NOTED AND CARRIED OUT.
[2019-03-04] MEDS: DOXYCYCLINE HYCLATE (100 MG) 100 MG TABLET GT SCH ×2 (11:32→23:05)
[2019-03-04] MEDS: IV NS 0.9% 1,000 ML IV PRN (11:33)
[2019-03-04] MEDS: ACETYLCYSTEINE 10% SOLN 400 MG/4 ML VIAL NEB SCH ×3 (11:36→23:05)
--- NOTE | 2019-03-04 14:36 | NUR ---
RT Pt placed back on BiPAP due to increased WOB. Mepilex is in place on bridge of nose for skin protection. BiPAP alarms are set and audible with BVM by bedside. BiPAP is plugged into red outlet. Pt appears to be more comfortable on BiPAP at this time. ADÁN Castillo notified and aware. Addendum: 03/04/19 at 1455 by COLLEEN CUBA RT Amended: Links added.
[2019-03-04] MEDS: ALBUTEROL HALF STRENGTH 1.25 MG/3 ML VIAL.NEB NEB SCH ×2 (14:37→19:44)
--- NOTE | 2019-03-04 14:41 | NUR ---
TELE1/RN BACK TO BI-PAP RT PLACED PATIENT BACK TO BI-PAP, MONITORING CONTINUED.
[2019-03-04] MEDS ORDERED: Z GUARD REMEDY 2 OZ OINT TP PRN (16:00)
--- NOTE | 2019-03-04 19:19 | NUR ---
SAW FILER NOTE REPORT GIVEN BEDSIDE. PATIENT IN BED OBTUNDED ON BI-PAP. PATIENT SATURATION 97% PT HAS NO S/S OF ACUTE DISTRESS. PATIENT HR SR IN THE 90'S. PATIENT READJUSTED FOR COMFORT. HOB 45 DEGREES. MIDLINE PATENT AND INTACT. NO S/S OF INFECTIONS. RN WILL CONTINUE TO MONITOR. SAFETY PRECAUTIONS IN PLACE.
[2019-03-04] MEDS: BISACODYL (5 MG) 5 MG TABLET.DR GT SCH (23:00)
[2019-03-04] MEDS: CEFTRIAXONE 1 G in IV D5W 50 ML IV SCH (23:03)
[2019-03-05] VITALS: BP 127/64
--- NOTE | 2019-03-05 00:45 | NUR ---
COUNTER HELPER NOTE PATIENT HAD EPISODE OF TACHY HR HIGH 140. EPISODE LASTED SEVERAL MINUTES AND HR DECREASE TO NORMAL RANGE. MD JOHNSON CALLED TO NOTIFY. AWARE NO NEW ORDERS GIVEN.
[2019-03-05] MEDS: ALBUTEROL HALF STRENGTH 1.25 MG/3 ML VIAL.NEB NEB SCH ×4 (01:04→19:44)
--- NOTE | 2019-03-05 03:28 | NUR ---
GRINDING WHEEL OPERATOR NOTE PATIENT NOTED TO HAVE 5 MIN LONG SEIZURE. [employer] [place] DRIVER ENGINEERING TEAM SUPERVISOR FOR MD JOHNSON NOTIFIED, ORDERED ATIVAN IMG Q2HR PRN. PATIENT VS STABLE POST SEIZURE.
[2019-03-05] MEDS: IV NS 0.9% 1,000 ML IV PRN ×2 (03:40→18:13)
[2019-03-05 04:30] VITALS: BP 142/71
[2019-03-05] MEDS: METOCLOPRAMIDE HCL 10 MG/2 ML VIAL IV SCH ×4 (05:26→23:35)
--- NOTE | 2019-03-05 05:32 | NUR ---
OXYGEN THERAPY TECHNICIAN NOTE TRANSITION MANAGER PRESENT CXR TAKEN ORDERED
[2019-03-05] MEDS: LORAZEPAM INJ 2 MG/ML VIAL IV PRN ×2 (05:41→21:51)
--- NOTE | 2019-03-05 07:24 | NUR ---
SIGNAL TESTER NOTE PATIENT TOLERATED THE NIGHT. PATIENT HAD 2 SEIZURES MANAGED BY ATIVAN. PATIENT TOLERATING BIPAP. HR IN THE 90'S. ENDORSED POC TO AM FOR CURTIS. SAFETY PRECAUTIONS IN PLACE.
--- NOTE | 2019-03-05 07:46 | NUR ---
NURSE MANAGER OPENING NOTE PATIENT RECEIVED IN BED ON BI-PAP. PATIENT OBTUNDED, SATURATION 99% .PT HAS NO S/S OF ACUTE DISTRESS. PATIENT HR SR IN THE 90'S. HOB 45 DEGREES. BROOK MIDLINE PATENT AND INTACT. L HAND SL INTACT AND PATENT. NO S/S OF INFECTIONS. SAFETY PRECAUTIONS IN PLACE, BED IN LOW LOCKED POSITION. CALL LIGHT WITHIN REACH. WILL CONTINUE TO MONITOR.
[2019-03-05 08:00] VITALS: BP 109/44
[2019-03-05] MEDS: ACETYLCYSTEINE 10% SOLN 400 MG/4 ML VIAL NEB SCH ×2 (08:39→13:07)
[2019-03-05] MEDS: BISACODYL (5 MG) 5 MG TABLET.DR GT SCH (09:21)
[2019-03-05] MEDS: PANTOPRAZOLE 40 MG/PACK PACK GT SCH (09:21)
[2019-03-05] MEDS: AMLODIPINE BESYLATE 2.5 MG TABLET GT SCH (09:26)
[2019-03-05] MEDS: APIXABAN 2.5 MG TABLET GT SCH ×2 (09:31→17:10)
--- NOTE | 2019-03-05 09:37 | NUR ---
ACADEMIC PROGRAM SPECIALIST NOTE PATIENT BP RECHECKED BEFORE GIVING BP MEDS. BP 143/62 @ 0930. BP MEDICATION GIVEN PRESCIBED.
--- NOTE | 2019-03-05 10:12 | NUR ---
HYDROGEOLOGIST NOTE RN NOTIFIED RT OF MD ORDER TO TITRATE DOWN PATIENT FIO2 SETTINGS.
[2019-03-05] MEDS: DOXYCYCLINE HYCLATE (100 MG) 100 MG TABLET GT SCH ×2 (11:15→23:35)
[2019-03-05 12:00] VITALS: BP 119/47
[2019-03-05 16:00] VITALS: BP 120/62
--- NOTE | 2019-03-05 17:08 | NUR ---
fio2 increased from 50% to 100% due to spo2 84 - 87%. charge nurse notified. Addendum: 03/05/19 at 1711 by YANA ROBERTSON RT Amended: Links added.
--- NOTE | 2019-03-05 19:20 | NUR ---
AQUATICS INSTRUCTOR NOTE REPORT GIVEN BEDSIDE. PATIENT OBTUNDED. PATIENT SATURATING 100% ON BIPAP. MARKED NOTICED DIFFERENCE IN WOB. CLAVICULAR RETRACTIONS DECREASED. PATIENT HR SR ON THE MONITOR. NO S/S OF DISTRESS. PATIENT REPOSITIONED FOR COMFORT. RN WILL CONTINUE TO MONITOR.
[2019-03-05 20:00] VITALS: BP 115/63
[2019-03-05] MEDS ORDERED: MUPIROCIN OINT 2% 22 GM TUBE SCH (21:00)
--- NOTE | 2019-03-05 21:54 | NUR ---
ELEMENTARY SUBSTITUTE TEACHER NOTE RT AT BEDSIDE NOTED HIGH RR. ATIVAN GIVEN PER MD PRN ORDER.
[2019-03-05] MEDS: CEFTRIAXONE 1 G in IV D5W 50 ML IV SCH (23:42)
[2019-03-06] VITALS: BP 114/62
[2019-03-06] MEDS: ACETYLCYSTEINE 10% SOLN 400 MG/4 ML VIAL NEB SCH ×3 (00:19→13:35)
[2019-03-06] MEDS: ALBUTEROL HALF STRENGTH 1.25 MG/3 ML VIAL.NEB NEB SCH ×4 (02:26→20:34)
[2019-03-06 04:00] VITALS: BP 128/71
[2019-03-06] MEDS: LORAZEPAM INJ 2 MG/ML VIAL IV PRN ×2 (05:16→23:13)
[2019-03-06] MEDS: METOCLOPRAMIDE HCL 10 MG/2 ML VIAL IV SCH ×4 (05:16→23:13)
--- NOTE | 2019-03-06 05:18 | NUR ---
CHANGE MANAGEMENT NOTE PATIENT HR INCREASED TO 120, AND SATURATION DECREASED TO 69 WITH PALLOR AND MINOR CYANOSIS AFTER REPOSITIONING AND CLEANING. INCREASED PT FIO2 TO 100%. V/S AND SKIN TONE RETURNED TO NORMAL.
--- NOTE | 2019-03-06 07:04 | NUR ---
received on 50% fio2 with spo2 88% to 94%. fio2 increase from 50% to 100% due to low spo2. rn aware on vent changes made. Addendum: 03/06/19 at 0804 by YANA ROBERTSON RT Amended: Links added.
[2019-03-06 08:00] VITALS: BP 165/86
--- NOTE | 2019-03-06 08:00 | NUR ---
fio2 titrate down from 100% to 60% with spo2 96% to 98%. rn notified. Addendum: 03/06/19 at 0800 by YANA ROBERTSON RT Amended: Links added.
[2019-03-06] MEDS: PANTOPRAZOLE 40 MG/PACK PACK GT SCH (08:05)
[2019-03-06] MEDS: APIXABAN 2.5 MG TABLET GT SCH ×2 (08:09→18:11)
--- NOTE | 2019-03-06 09:01 | NUR ---
GEOTHERMAL PRODUCTION MANAGER OPENING NOTE PATIENT RECEIVED IN BED ON BI-PAP. 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 PT HAS NO S/S OF ACUTE DISTRESS. SR 90-100 ON TELE. HOB 45 DEGREES. BROOK MIDLINE PATENT AND INTACT. NO S/S OF INFECTIONS. SAFETY PRECAUTIONS IN PLACE, BED IN LOW LOCKED POSITION. CALL LIGHT WITHIN REACH. WILL CONTINUE TO MONITOR.
[2019-03-06 09:44] LABS: ALANINE AMINOTRANSFERASE 22 U/L (12-78); ALKALINE PHOSPHATASE 90 U/L (46-116); ASPARTATE AMINOTRANSFERASE 22 U/L (15-37); BILIRUBIN,TOTAL 0.4 mg/dL (0.2-1.0); CALCIUM, SERUM 8.9 mg/dL (8.5-10.1); CARBON DIOXIDE 27 mmol/L (21-32); CHLORIDE 113 mmol/L (98-107); CREATININE 0.8 mg/dL (0.6-1.3); GLUCOSE 118 mg/dL (74-106); SODIUM SERUM 147 mmol/L (136-145); TOTAL PROTEIN, SERUM 6.8 g/dL (6.4-8.2); UREA NITROGEN, BLOOD 28 mg/dL (7-18)
[2019-03-06] MEDS: BISACODYL (5 MG) 5 MG TABLET.DR GT SCH (10:05)
[2019-03-06] MEDS: DOXYCYCLINE HYCLATE (100 MG) 100 MG TABLET GT SCH ×2 (11:08→23:31)
[2019-03-06 12:00] VITALS: BP 120/74
[2019-03-06] MEDS: IV NS 0.9% 1,000 ML IV PRN (15:24)
[2019-03-06 16:00] VITALS: BP 124/57
[2019-03-06] MEDS: LACTOBACILLUS RHAMNOSUS GG 1 EACH CAP.SPRINK GT SCH (18:10)
[2019-03-06 20:00] VITALS: BP 127/52
--- NOTE | 2019-03-06 20:33 | NUR ---
HARVEST WORKER FIELD CROP CLOSING NOTE PATIENT IN BED ON BI-PAP. 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 PT HAS NO S/S OF ACUTE DISTRESS. SR 90-100 ON TELE. HOB 45 DEGREES. BROOK MIDLINE PATENT AND INTACT. NO S/S OF INFECTIONS. SAFETY PRECAUTIONS IN PLACE, BED IN LOW LOCKED POSITION. CALL LIGHT WITHIN REACH. CARE ENDORSED TO CUT OUT MACHINE OPERATOR RN.
[2019-03-06] MEDS: CEFTRIAXONE 1 G in IV D5W 50 ML IV SCH (23:15)
[2019-03-07] VITALS: BP 139/81
[2019-03-07] MEDS: ALBUTEROL HALF STRENGTH 1.25 MG/3 ML VIAL.NEB NEB SCH ×4 (00:34→19:41)
[2019-03-07] MEDS: ACETYLCYSTEINE 10% SOLN 400 MG/4 ML VIAL NEB SCH ×4 (00:34→23:19)
--- NOTE | 2019-03-07 00:47 | NUR ---
RT NOTE NT SUCTION PERFORMED WITH NO COMPLICATIONS. SUCTIONED LARGE, THICK, YELLOW SECRETIONS. RN CELWYN AWARE.
[2019-03-07] MEDS: JEVITY 1.2 CAL 1,000 ML BOTTLE GT PRN (03:36)
[2019-03-07 04:00] VITALS: BP 132/75
[2019-03-07] MEDS: METOCLOPRAMIDE HCL 10 MG/2 ML VIAL IV SCH ×4 (05:47→23:32)
[2019-03-07] MEDS: IV NS 0.9% 1,000 ML IV PRN ×2 (06:05→21:03)
[2019-03-07 06:30] LABS: BASOPHILS % (AUTO) 0.3 % (0.0-2.0); EOSINOPHILS % (AUTO) 0.8 % (0.0-6.0); HEMATOCRIT 27 % (39-51); HEMOGLOBIN 8.8 g/dL (13.5-17.5); LYMPHOCYTES # (AUTO) 1.1 /CMM (0.8-4.8); LYMPHOCYTES % (AUTO) 9.4 % (20.0-44.0); MEAN CORPUSCULAR HGB CONC 33 g/dl (31.0-36.0); MEAN CORPUSCULAR VOLUME 93 fL (80-96); MONOCYTES % (AUTO) 8.8 % (2.0-12.0); NEUTROPHILS # (AUTO) 9.2 /CMM (1.8-8.9); NEUTROPHILS % (AUTO) 80.7 % (43.0-81.0); PLATELET COUNT (AUTO) 228 /CMM (150-450); RED BLOOD CELL COUNT(AUTO) 2.86 MIL/uL (4.5-6.0); WHITE BLOOD COUNT (AUTO) 11.4 K/uL (4.3-11.0)
[2019-03-07 07:00] LABS: ALANINE AMINOTRANSFERASE 23 U/L (12-78); ALKALINE PHOSPHATASE 89 U/L (46-116); ASPARTATE AMINOTRANSFERASE 17 U/L (15-37); B-TYPE NATRIURETIC PEPTIDE 9521 PG/ML (0-125); BILIRUBIN,TOTAL 0.4 mg/dL (0.2-1.0); CALCIUM, SERUM 8.8 mg/dL (8.5-10.1); CARBON DIOXIDE 25 mmol/L (21-32); CHLORIDE 114 mmol/L (98-107); CREATININE 0.7 mg/dL (0.6-1.3); GLUCOSE 124 mg/dL (74-106); MAGNESIUM 1.8 mg/dL (1.8-2.4); PHOSPHORUS 1.8 mg/dL (2.5-4.9); POTASSIUM 3.6 mmol/L (3.5-5.1); SODIUM SERUM 148 mmol/L (136-145); UREA NITROGEN, BLOOD 24 mg/dL (7-18)
--- NOTE | 2019-03-07 07:20 | NUR ---
RN NOTES RECEIVED PATIENT IN BED ON A BIPAP TOLERATING WELL, NO DISTRESS NOTED. BREATHING EVEN AND UNLABORED. NO PHYSICAL MANIFESTATION OF PAIN OR DISCOMFORT. RESPONSIVE TO TOUCH. NON VERBAL. NOTED PATIENT HAVING HIGH RESPIRATORY RATE FRO 40'S TO 60'S. REPOSITION FOR COMFORT. VITAL SIGNS CHECKED. WNL. O2 SATURATION 100%. SEEN AND SUCTIONED BY RT. ATIVAN 1MG ADMINISTERED, WITH HELP. CHANGE MASK BY RT, NOSE VERY RED STARTING TO SCAB. KEPT CLEAN AND DRY. WILL ENDORSE TO NEXT SHIFT FOR CONTINUITY OF CARE.
[2019-03-07 08:00] VITALS: BP 94/31
--- NOTE | 2019-03-07 08:41 | NUR ---
SALES REPRESENTATIVE JEWELRY OPENING NOTE PATIENT RECEIVED IN BED ON BI-PAP. 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 PT HAS NO S/S OF ACUTE DISTRESS. SR 90-100 ON TELE. HOB 45 DEGREES. BROOK MIDLINE PATENT AND INTACT. NO S/S OF INFECTIONS. SAFETY PRECAUTIONS IN PLACE, BED IN LOW LOCKED POSITION. CALL LIGHT WITHIN REACH. WILL CONTINUE TO MONITOR.
[2019-03-07] MEDS: BISACODYL (5 MG) 5 MG TABLET.DR GT SCH (09:50)
[2019-03-07] MEDS: LACTOBACILLUS RHAMNOSUS GG 1 EACH CAP.SPRINK GT SCH ×2 (09:50→17:15)
[2019-03-07] MEDS: PANTOPRAZOLE 40 MG/PACK PACK GT SCH (09:51)
[2019-03-07] MEDS: APIXABAN 2.5 MG TABLET GT SCH ×2 (09:51→17:15)
[2019-03-07] MEDS: LORAZEPAM INJ 2 MG/ML VIAL IV PRN (09:52)
[2019-03-07] MEDS ORDERED: NEUTRA PHOS 1 POWD.PACKET NG ONE (10:30)
[2019-03-07 12:00] VITALS: BP 127/51
[2019-03-07] MEDS: DOXYCYCLINE HYCLATE (100 MG) 100 MG TABLET GT SCH ×2 (12:35→23:31)
[2019-03-07 16:00] VITALS: BP 149/75
--- NOTE | 2019-03-07 19:31 | NUR ---
AMMONIA NITRATE OPERATOR CLOSING NOTE PATIENT IN BED ON BI-PAP. 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 PT HAS NO S/S OF ACUTE DISTRESS. SR 90-100 ON TELE. HOB 45 DEGREES. BROOK MIDLINE PATENT AND INTACT. NO S/S OF INFECTIONS. SAFETY PRECAUTIONS IN PLACE, BED IN LOW LOCKED POSITION. CALL LIGHT WITHIN REACH. CARE ENDORSED TO DRAPERY AND UPHOLSTERY ESTIMATOR RN.
[2019-03-07 20:00] VITALS: BP 124/73
[2019-03-07] MEDS: CEFTRIAXONE 1 G in IV D5W 50 ML IV SCH (23:32)
[2019-03-08] VITALS: BP 132/64
[2019-03-08] MEDS: ALBUTEROL HALF STRENGTH 1.25 MG/3 ML VIAL.NEB NEB SCH ×4 (01:25→19:48)
[2019-03-08 04:00] VITALS: BP 116/62
[2019-03-08] MEDS: METOCLOPRAMIDE HCL 10 MG/2 ML VIAL IV SCH ×3 (06:01→17:45)
--- NOTE | 2019-03-08 06:10 | NUR ---
RN NOTES PATIENT IN BED, ALERT AND RESPONSIVE TO TACTILE STIMULI. CONTRACTED, NON VERBAL. ON BIPAP, TOLERATING WELL WITH 02SAT OF 100%. VITAL SIGNS WNL. NOTED RESPIRATION JUMPING FROM 32 TO 43BPM. SEEN AND SUCTIONED AND ADMINISTERED BREATHING TREATMENT BY RT. KEPT CLEAN AND DRY. WILL CONTINUE TO MONITOR. AT ABOUT 0400 DURING ADL, PEG TUBE SUDDENLY POPPED OUT WHEN PATIENT COUGHED. CLEANSE SITE AND IMMEDIATELY INSERTED GTUBE FR 20 TO KEEP STOMA PATENT. CALLED MD AND ORDERED NPO. KEPT CLEAN AND DRY. WILL ENDORSE TO NEXT SHIFT FOR CONTINUITY OF CARE.
--- NOTE | 2019-03-08 07:30 | NUR ---
RN NOTES RECEIVED PATIENT IN BED ON BIPAP WITH BREATHING NORMAL, EVEN AND UNLABORED. NO SOB NOTED. NO ACUTE DISTRESS NOTED. TELE MONITOR REVEALS SR WITH PVC , HR=90 . YESIKA MIDLINE IS PATENT AND INTACT, RUNNING IVF PER ORDER. CONT WITH NPO STATUS. F/C IS PATENT AND INTACT, DRAINING WITH GRAVITY. KEPT CLEAN, DRY AND COMFORTABLE. ALL NEEDS ATTENDED. SAFETY MEASURE OBSERVED. CALL LIGHT WITH IN REACH. WILL CONT TO MONITOR.
[2019-03-08 08:00] VITALS: BP 138/70
[2019-03-08] MEDS: ACETYLCYSTEINE 10% SOLN 400 MG/4 ML VIAL NEB SCH ×2 (08:38→14:53)
[2019-03-08] MEDS: BISACODYL (5 MG) 5 MG TABLET.DR GT SCH (08:49)
[2019-03-08] MEDS: APIXABAN 2.5 MG TABLET GT SCH (08:49)
[2019-03-08] MEDS: LACTOBACILLUS RHAMNOSUS GG 1 EACH CAP.SPRINK GT SCH ×2 (08:49→17:00)
[2019-03-08] MEDS: PANTOPRAZOLE 40 MG/PACK PACK GT SCH (08:50)
[2019-03-08] MEDS: DOXYCYCLINE HYCLATE (100 MG) 100 MG TABLET GT SCH ×2 (11:00→22:45)
[2019-03-08] MEDS: IV NS 0.9% 1,000 ML IV PRN (11:20)
[2019-03-08 12:00] VITALS: BP_SYST 119; BP_DIAS 55; BP_DIAS 58
--- NOTE | 2019-03-08 14:28 | NUR ---
RN NOTES NOTIFIED DR JOHNSON THAT PATIENT GT NOT IN PLACE, WAITING FOR GI CONSULT, NO ANTIBIOTIC GIVEN DUE TO GT. MD IS OK TO HOLD ANTIBIOTIC UNTIL NEW GT PLACED AND WANNA WAIT FOR GI CONSULT. WILL CONT TO MONITOR.
[2019-03-08 16:00] VITALS: BP_SYST 114; BP_SYST 119; BP_DIAS 55; BP_DIAS 68
--- NOTE | 2019-03-08 16:19 | NUR ---
RT RECD PT ON BIPAP BAG AND MASK AT [facility] TXS GIVEN NO ADVERSE REACTION NOTED ATT WILL CONT TO MONITOR , SX THICK YELLOW RUBALCAVA COPIOUS AMOUNT OF SECRETION IN BACK OF MOUTH WITH TOM
[2019-03-08] MEDS: IV 1/2NS 1000 ML 1,000 ML IV PRN (17:49)
--- NOTE | 2019-03-08 18:52 | NUR ---
RN NOTES PATIENT ENDORSED TO NEXT SHIFT IN STABLE CONDITION FOR CONTINUITY OF CARE. NO SIGNIFICANT CHANGES NOTED. KEPT CLEAN, DRY AND COMFORTABLE. ALL NEEDS ATTENDED. SAFETY MEASURE OBSERVED. CALL LIGHT WITH IN REACH. WILL CONT TO MONITOR.
--- NOTE | 2019-03-08 19:37 | NUR ---
NEONATOLOGIST NOTE PATIENT RECEIVED IN BED, STABLE. PATIENT SATURATING AT 97% NO S.S OF DISTRESS. PATIENT OBTUNDED NPO, ON 60 ML 1/2 NS. PATIENT SR 96 ON THE MONITOR. CALLED IN REGAURDS TO CONSENT FOR EGD TOMORROW. NO RESPONSE. LEFT MESSAGE. SAFETY PRECAUTIONS IN PLACE. RN WILL CONTINUE TO MONITOR.
[2019-03-08 19:41] LABS: IRON, SERUM 18 ug/dl (50-175); TOTAL IRON BINDING CAPACITY 132 ug/dl (250-450)
--- NOTE | 2019-03-08 19:49 | NUR ---
PT RECEIVED ON BIPAP 15/5,RATE 16 , FIO2 60%. BREATHING TX GIVEN PER MD'S ORDER., NO ADVERSE REACTION NOTED. NO RESPIRATORY DISTRESS NOTED AT THIS TIME Addendum: 03/09/19 at 0318 by MISHA LIN RT WOUND NOTED ON THE BRIDGE OF THE NOSE DURING 1ST ROUND, ADÁN REESE NOTIFIED
[2019-03-08 19:57] LABS: FERRITIN 1616 ng/mL (8-388)
[2019-03-08 20:00] VITALS: BP 142/60
[2019-03-08] MEDS: CEFTRIAXONE 1 G in IV D5W 50 ML IV SCH (23:32)
[2019-03-09] VITALS: BP 101/71
[2019-03-09] MEDS: ACETYLCYSTEINE 10% SOLN 400 MG/4 ML VIAL NEB SCH ×4 (00:30→22:52)
[2019-03-09] MEDS: METOCLOPRAMIDE HCL 10 MG/2 ML VIAL IV SCH ×5 (00:30→23:04)
[2019-03-09] MEDS: ALBUTEROL HALF STRENGTH 1.25 MG/3 ML VIAL.NEB NEB SCH ×4 (00:32→20:01)
--- NOTE | 2019-03-09 01:04 | NUR ---
SQL REPORT ANALYST NOTE PATIENT TURNED AND REPOSITIONED, PATIENT HAS WET COUGH SUCTION ORAL CAVITY NO PRODUCTION, RT ALSO TRIED NO PRODUCTION.
--- NOTE | 2019-03-09 03:49 | NUR ---
LOW PRESSURE BOILER TENDER NOTE PATIENT READJUSTED AND TURNED FOR COMFORT. RT AT BEDSIDE, TITRATING O2 TO 50%, PATIENT SATURATION 98%
[2019-03-09 04:00] VITALS: BP 126/64
[2019-03-09 06:38] LABS: BASOPHILS # (AUTO) 0.1 /CMM (0.0-0.2); BASOPHILS % (AUTO) 0.7 % (0.0-2.0); HEMATOCRIT 29 % (39-51); HEMOGLOBIN 9.7 g/dL (13.5-17.5); LYMPHOCYTES # (AUTO) 1.5 /CMM (0.8-4.8); LYMPHOCYTES % (AUTO) 14.8 % (20.0-44.0); MEAN CORPUSCULAR HGB CONC 34 g/dl (31.0-36.0); MEAN CORPUSCULAR VOLUME 94 fL (80-96); MONOCYTES # (AUTO) 0.9 /CMM (0.1-1.30); MONOCYTES % (AUTO) 9.2 % (2.0-12.0); NEUTROPHILS # (AUTO) 7.3 /CMM (1.8-8.9); NEUTROPHILS % (AUTO) 71.3 % (43.0-81.0); PLATELET COUNT (AUTO) 209 /CMM (150-450); RED BLOOD CELL COUNT(AUTO) 3.07 MIL/uL (4.5-6.0); WHITE BLOOD COUNT (AUTO) 10.2 K/uL (4.3-11.0)
[2019-03-09 06:53] LABS: CALCIUM, SERUM 8.9 mg/dL (8.5-10.1); CARBON DIOXIDE 26 mmol/L (21-32); CHLORIDE 115 mmol/L (98-107); CREATININE 0.7 mg/dL (0.6-1.3); GLUCOSE 87 mg/dL (74-106); POTASSIUM 3.5 mmol/L (3.5-5.1); SODIUM SERUM 152 mmol/L (136-145); UREA NITROGEN, BLOOD 19 mg/dL (7-18)
[2019-03-09 08:00] VITALS: BP_SYST 123; BP_SYST 125; BP_DIAS 54
--- NOTE | 2019-03-09 08:00 | NUR ---
RN NOTE PATIENT IN BREATHING VIA NRM AND SATING AT 98% , G TUBE IS CLAMPED PT IS NPO FOR EGD , VITAL SIGNS STABLE NO ACUTE DISTRESS NOTED AT THIS TIME TELE MONITOR sR / ST PT REPOSITION FOR COMFORT
[2019-03-09] MEDS ORDERED: DIATR MEGLU/DIATRIZOATE SODIUM 30 ML BOTTLE (GASTROGRAPHIN) ONE (08:08)
[2019-03-09] MEDS: LACTOBACILLUS RHAMNOSUS GG 1 EACH CAP.SPRINK GT SCH ×2 (09:00→17:00)
[2019-03-09] MEDS: BISACODYL (5 MG) 5 MG TABLET.DR GT SCH (09:00)
[2019-03-09] MEDS: PANTOPRAZOLE 40 MG/PACK PACK GT SCH (09:00)
--- NOTE | 2019-03-09 09:48 | NUR ---
RT NOTE PT PLACED ON NRB AT 15 L PER MD VEGA VERBAL ORDER. ADÁN TREVIÑO NOTIFIED. PT SPO2 96% HR 96 AT MOMENT. BIPAP AT BED SIDE. NO DISTRESS NOTED AT MOMENT. Addendum: 03/09/19 at 0950 by RANADLL SOTO RT Amended: Links added.
[2019-03-09] MEDS: IV 1/2NS 1000 ML 1,000 ML IV PRN (10:50)
[2019-03-09] MEDS: DOXYCYCLINE HYCLATE (100 MG) 100 MG TABLET GT SCH ×2 (11:00→23:04)
[2019-03-09 12:00] VITALS: BP 141/56
[2019-03-09 16:00] VITALS: BP 122/68
--- NOTE | 2019-03-09 18:20 | NUR ---
RN NOTE PATIENT STARTED ON TUBE FEEDING OF JEVITY 1.2 PER ORDER HEAD OF BED HOB 30 % , WILL CONTINUE TO MONITOR
--- NOTE | 2019-03-09 19:33 | NUR ---
SAFETY PIN ASSEMBLING MACHINE OPERATOR NOTE PATIENT REPORT GIVEN BEDSIDE. PATIENT IN BED HOB AT 40 DEGREES. PATIENT OBTUNDED NO S.S OF DISTRESS.PATIENT ON 8L NO REBREATHER TOLERATING WELL. NO S/S OF WOB//SOB. PATIENT ON GTUBE FEEDING AT GOAL 40 ML/ HR. RN WILL EVALUATE FOR RESIDUAL THROUGHOUT SHIFT. PATIENT TURNED AND REPOSITIONED FOR COMFORT. SAFETY PRECAUTIONS IN PLACE. RN WILL CONTINUE TO MONITOR.
[2019-03-09 20:00] VITALS: BP 138/66
[2019-03-09] MEDS: CEFTRIAXONE 1 G in IV D5W 50 ML IV SCH (23:04)
[2019-03-09] MEDS: LORAZEPAM INJ 2 MG/ML VIAL IV PRN (23:16)
[2019-03-10] VITALS: BP 120/61
[2019-03-10] MEDS: ALBUTEROL HALF STRENGTH 1.25 MG/3 ML VIAL.NEB NEB SCH ×4 (01:19→19:04)
[2019-03-10 04:00] VITALS: BP 130/61
[2019-03-10] MEDS: IV 1/2NS 1000 ML 1,000 ML IV PRN ×2 (04:04→22:07)
[2019-03-10] MEDS: LORAZEPAM INJ 2 MG/ML VIAL IV PRN ×3 (04:49→19:17)
[2019-03-10] MEDS: METOCLOPRAMIDE HCL 10 MG/2 ML VIAL IV SCH ×4 (05:33→23:13)
--- NOTE | 2019-03-10 06:48 | NUR ---
HOUSE MANAGER NOTE PATIENT STABLE NO S/S OF DISTRESS. NO ACUTE CHANGES THROUGH THE NIGHT. POC ENDORSED TO AM FOR CURTIS
[2019-03-10] MEDS: ACETYLCYSTEINE 10% SOLN 400 MG/4 ML VIAL NEB SCH ×2 (07:14→15:30)
[2019-03-10 08:00] VITALS: BP 107/51
--- NOTE | 2019-03-10 08:00 | NUR ---
TELE1/RN AM SHIFT INITIAL NOTES RECEIVED PT ASLEEP IN BED, PT NON-VERBAL, OPEN EYES SPONTANEOUSLY, NO ACUTE RESPIRATORY DISTRESS NOTED, ON BI-PAP SATURATING @ 100%, LUNG SOUNDS RHONCHI, BREATHING SWALLOW, A BIT LABORED. ON TELE WITH SINUS RHYTHM WITH PVCs, HR 87. ON GOING IV INFUSION OF 1/2NS @ 60CC/HR, IV SITE PATENT WITH NO S/S OF INFECTION. GT FEEDING ON GOING @ 40CC/HR, NO GASTRIC RESIDUAL, FLUSHED, PATENT. ZAMORA CATHETER INTACT WITH YELLOW URINE OUTPUT. DR. JOHNSON ON ROUNDS, NO NEW ORDERS RECEIVED BUT SAID WANTS HOSPICE EVALUATION, CHARGE NURSE AWARE. PT IS COMFORTABLE, SCHEDULED AM MEDS TO BE GIVEN. CL WITHIN REACHED, SAFETY MAINTAINED AND ISOLATION OBSERVED.
[2019-03-10] MEDS: PANTOPRAZOLE 40 MG/PACK PACK GT SCH (09:03)
[2019-03-10] MEDS: LACTOBACILLUS RHAMNOSUS GG 1 EACH CAP.SPRINK GT SCH ×2 (09:03→16:33)
[2019-03-10] MEDS: BISACODYL (5 MG) 5 MG TABLET.DR GT SCH (09:03)
--- NOTE | 2019-03-10 09:36 | NUR ---
TELE1/RN ROUNDS - DR. VEGA UPDATED PT'S CONDITION. MADE AWARE OF DR. JOHNSON'S PLAN FOR HOSPITAL EVALUATION. PT SEEN & EXAMINED BY DR. VEGA. NO NEW ORDER RECEIVED AT THIS TIME. MONITORING CONTINUED.
[2019-03-10] MEDS: DOXYCYCLINE HYCLATE (100 MG) 100 MG TABLET GT SCH ×2 (11:13→22:06)
[2019-03-10 12:00] VITALS: BP 118/64
--- NOTE | 2019-03-10 14:00 | NUR ---
TELE1/RN NOTIFY - HOSPICE CORNELIUSAL CALLED PT'S AND LEFT A MESSAGE TO CALL BACK UNIT TO NOTIFY HER OF DR. JOHNSON'S PLAN TO PLACE PT ON HOSPICE EVALUATION. AWAITING FOR RETURN CALL.
[2019-03-10 16:00] VITALS: BP 128/74
--- NOTE | 2019-03-10 17:20 | NUR ---
TELE1/RN AFTERNOON ROUNDS PM CARE PROVIDED, NO CHANGE OF CONDITION. MONITORING CONTINUED.
--- NOTE | 2019-03-10 18:57 | NUR ---
TELE1/RN AM SHIFT END NOTES ALL NEEDS MET. NO ACUTE CHANGE OF CONDITION NOTED DURING THE SHIFT. PT ENDORSED TO PM NURSE TO CONTINUE CARE. CL WITHIN REACHED, SAFETY MAINTAINED AND ISOLATION OBSERVED.
--- NOTE | 2019-03-10 19:15 | NUR ---
BOMB TECHNICIAN NOTE: RECEIVED PT ON BED OBTUNDED WITH NO APPARENT DISTRESS NOTED. NO FACIAL GRIMACING OR ANY SIGNS OF PAIN NOTED. ON BIPAP, NO SOB NOTED AT THIS TIME. ON TELE MONITOR, SINUS TACHY HR 120BPM, ATIVAN PRN WILL BE GIVEN. ZAMORA CATH INTACT AND PATENT, DRAINING WELL. GTF ABLE TO TOLERATE WELL. KEPT CLEAN, DRY AND COMFORTABLE. SAFETY AND FALL PRECAUTIONS OBSERVED AND MAINTAINED. WILL CONTINUE TO MONITOR PT.
--- NOTE | 2019-03-10 19:30 | NUR ---
TRANSIT DRIVER NOTE: ATIVAN PRN GIVEN. SUCTIONED NEEDED. SINUS RHYTHM ON TELE MONITOR HR 93BPM. WILL CONTINUE TO MONITOR PT.
[2019-03-10 20:00] VITALS: BP 124/67
[2019-03-10] MEDS: CEFTRIAXONE 1 G in IV D5W 50 ML IV SCH (23:12)
[2019-03-11] VITALS: BP 127/57
[2019-03-11] MEDS: ACETYLCYSTEINE 10% SOLN 400 MG/4 ML VIAL NEB SCH ×4 (00:29→21:35)
[2019-03-11] MEDS: ALBUTEROL HALF STRENGTH 1.25 MG/3 ML VIAL.NEB NEB SCH ×4 (00:31→21:35)
[2019-03-11 04:00] VITALS: BP 114/63
[2019-03-11] MEDS: JEVITY 1.2 CAL 1,000 ML BOTTLE GT PRN (04:37)
[2019-03-11] MEDS: METOCLOPRAMIDE HCL 10 MG/2 ML VIAL IV SCH ×3 (05:52→17:59)
--- NOTE | 2019-03-11 06:53 | NUR ---
TAX COMPLIANCE AGENT NOTE: NO CHANGES NOTED THROUGHOUT THE SHIFT. NO APPARENT DISTRESS NOTED. NO FACIAL GRIMACING OR ANY SIGNS OF PAIN NOTED. ON BIPAP, SATURATING WELL. SINUS RHYTHM ON TELE MONITOR HR 86BPM. GT INTACT AND PATENT, ABLE TO TOLERATE FEEDING WELL. NO SIGNS/SYMPOTMS OF ASPIRATION NOTED. KEPT CLEAN, DRY AND COMFORTABLE. SAFETY AND FALL PRECAUTIONS OBSERVED AND MAINTAINED. WILL ENDORSE TO DAY SHIFT RN FOR CONTINUITY OF CARE
[2019-03-11 08:00] VITALS: BP 142/69
[2019-03-11] MEDS: BISACODYL (5 MG) 5 MG TABLET.DR GT SCH (10:13)
[2019-03-11] MEDS: PANTOPRAZOLE 40 MG/PACK PACK GT SCH (10:14)
[2019-03-11] MEDS: LACTOBACILLUS RHAMNOSUS GG 1 EACH CAP.SPRINK GT SCH ×2 (10:14→17:58)
[2019-03-11 12:00] VITALS: BP 132/73
[2019-03-11 16:00] VITALS: BP 120/50
[2019-03-11] MEDS: APIXABAN 2.5 MG TABLET GT SCH (18:00)
--- NOTE | 2019-03-11 19:00 | NUR ---
RN NOTE PT REMAINED STABLE, NOT IN DISTRESS, ON BIPAP CONTINUOUSLY, NO NEWS FROM PT'S . AWAITING FOR HOSPICE EVAL. MEDS GIVEN PRESCRIBED, NEED MET, SKIN CARE DONE, KEPT CLEAN ND DRY,SAFETY MEASURES IN PLACE, WILL ENDORSE TO DATA MANAGEMENT MANAGER.
--- NOTE | 2019-03-11 19:38 | NUR ---
LIVESTOCK INSPECTOR NOTE: RECEIVED PT ON BED OBTUNDED WITH NO APPARENT DISTRESS NOTED. NO FACIAL GRIMACING OR ANY SIGNS OF PAIN NOTED. ON BIPAP, SATURATING WELL. SINUS RHYTHM ON TELE MONITOR HR 95BPM. GT INTACT AND PATENT, ABLE TO TOLERATE FEEDING WELL. NO SIGNS/SYMPTOMS OF ASPIRATION NOTED. HEAD OF BED KEPT ELEVATED. ZAMORA CATH INTACT, DRAINING WELL. KEPT CLEAN, DRY AND COMFORTABLE. SAFETY AND FALL PRECAUTIONS OBSERVED AND MAINTAINED. WILL CONTINUE TO MONITOR PT.
[2019-03-11 20:00] VITALS: BP 122/61
[2019-03-12] VITALS: BP 126/57
[2019-03-12] MEDS: METOCLOPRAMIDE HCL 10 MG/2 ML VIAL IV SCH ×5 (00:11→23:23)
[2019-03-12] MEDS: ALBUTEROL HALF STRENGTH 1.25 MG/3 ML VIAL.NEB NEB SCH ×4 (01:04→19:39)
[2019-03-12 05:00] VITALS: BP 115/50
--- NOTE | 2019-03-12 06:34 | NUR ---
LATRINE CLEANER NOTE: NO CHANGES NOTED THROUGHOUT THE SHIFT. NO ACUTE DISTRESS NOTED. NO FACIAL GRIMACING OR ANY SIGNS OF PAIN NOTED. ON BIPAP, SATURATING WELL. SINUS RHYTHM ON TELE MONITOR HR 94BPM. GT INTACT AND PATENT, ABLE TO TOLERATE FEEDING WELL. KEPT CLEAN, DRY AND COMFORTABLE. SAFETY AND FALL PRECAUTIONS OBSERVED AND MAINTAINED. WILL ENDORSE TO DAY SHIFT RN FOR CONTINUITY OF CARE
[2019-03-12 06:50] LABS: BASOPHILS # (AUTO) 0.1 /CMM (0.0-0.2); BASOPHILS % (AUTO) 0.7 % (0.0-2.0); EOSINOPHILS % (AUTO) 5.7 % (0.0-6.0); HEMATOCRIT 28 % (39-51); HEMOGLOBIN 9.2 g/dL (13.5-17.5); LYMPHOCYTES % (AUTO) 17.1 % (20.0-44.0); MEAN CORPUSCULAR HGB CONC 33 g/dl (31.0-36.0); MEAN CORPUSCULAR VOLUME 94 fL (80-96); MONOCYTES # (AUTO) 0.8 /CMM (0.1-1.30); MONOCYTES % (AUTO) 6.7 % (2.0-12.0); NEUTROPHILS # (AUTO) 8.2 /CMM (1.8-8.9); NEUTROPHILS % (AUTO) 69.8 % (43.0-81.0); PLATELET COUNT (AUTO) 190 /CMM (150-450); RED BLOOD CELL COUNT(AUTO) 2.97 MIL/uL (4.5-6.0); WHITE BLOOD COUNT (AUTO) 11.8 K/uL (4.3-11.0)
[2019-03-12 06:53] LABS: CALCIUM, SERUM 8.2 mg/dL (8.5-10.1); CARBON DIOXIDE 29 mmol/L (21-32); CHLORIDE 109 mmol/L (98-107); CREATININE 0.7 mg/dL (0.6-1.3); GLUCOSE 102 mg/dL (74-106); POTASSIUM 4.1 mmol/L (3.5-5.1); SODIUM SERUM 145 mmol/L (136-145); UREA NITROGEN, BLOOD 18 mg/dL (7-18)
--- NOTE | 2019-03-12 07:00 | NUR ---
EXECUTIVE OFFICER SPECIAL WARFARE TEAM OPENING NOTE: RECEIVED PT ON BED OBTUNDED WITH NO APPARENT DISTRESS NOTED. NO FACIAL GRIMACING OR ANY SIGNS OF PAIN NOTED. ON BIPAP, SATURATING WELL. SINUS RHYTHM ON TELE MONITOR. GT INTACT AND PATENT, ABLE TO TOLERATE FEEDING WELL. NO SIGNS/SYMPTOMS OF ASPIRATION NOTED. HEAD OF BED KEPT ELEVATED. ZAMORA CATH INTACT, DRAINING WELL. KEPT CLEAN, DRY AND COMFORTABLE. SAFETY AND FALL PRECAUTIONS OBSERVED AND MAINTAINED. BED IN LOCKED/LOWEST POSITION. CALL LIGHT IN REACH. WILL CONTINUE TO MONITOR.
[2019-03-12] MEDS: ACETYLCYSTEINE 10% SOLN 400 MG/4 ML VIAL NEB SCH ×2 (07:32→15:37)
[2019-03-12 08:00] VITALS: BP 121/68
[2019-03-12] MEDS: APIXABAN 2.5 MG TABLET GT SCH ×2 (09:09→17:22)
[2019-03-12] MEDS: PANTOPRAZOLE 40 MG/PACK PACK GT SCH (09:10)
[2019-03-12] MEDS: LACTOBACILLUS RHAMNOSUS GG 1 EACH CAP.SPRINK GT SCH ×2 (09:10→17:23)
[2019-03-12] MEDS: BISACODYL (5 MG) 5 MG TABLET.DR GT SCH (09:10)
[2019-03-12 12:00] VITALS: BP 111/57
[2019-03-12] MEDS: LORAZEPAM INJ 2 MG/ML VIAL IV PRN (12:30)
[2019-03-12] MEDS: JEVITY 1.2 CAL 1,000 ML BOTTLE GT PRN (14:50)
[2019-03-12 16:00] VITALS: BP_SYST 111; BP_SYST 125; BP_DIAS 57; BP_DIAS 71
--- NOTE | 2019-03-12 19:25 | NUR ---
FINANCIAL SERVICES REP NOTE REPORT GIVEN BEDSIDE, PATIENT IN BED OBTUNDED, OPENS EYES AND RESPONSES SLOWLY TO PAINFUL STIMULUS. PATIENT HAS NO S/S OF DISTRESS TOLERATING BIPAP SETTINGS. MINIMAL USE OF ACCESSORY MUSCLES NOTED. PATIENT SUCTIONED. PATIENT ZAMORA DRAINING TO GRAVITY. PATIENT TUBE FEEDING TOLERATED NO NOTED RESIDUAL. RN WILL CONTINUE TO MONITOR PATIENT THROUGHOUT SHIFT.
--- NOTE | 2019-03-12 19:45 | NUR ---
MANAGER SPRING END OF SHIFT NOTES REPORT GIVEN TO MARY ANN MCCAIN. TRIED TO CONTACT TODAY; UNSUCCESSFUL. PT ON BIPAP O2 SAT WNL. MODERATE AMOUNT OF MUCOUS FROM NOSE SUCTIONED THROUGHOUT SHIFT. TX RENDERED ORDERED. ALL NEEDS ATTENDED. BED IN LOCKED/LOWEST POSITION. ISOLATION PRECAUTIONS MAINTAINED. CALL LIGHT IN REACH.
[2019-03-12 20:00] VITALS: BP 132/56
[2019-03-13] VITALS: BP 140/56
--- NOTE | 2019-03-13 00:10 | NUR ---
RT NOTE SPUTUM SAMPLE COLLECTED WITH NO COMPLICATIONS. RN MARY ANN OLVERA.
[2019-03-13] MEDS: ACETYLCYSTEINE 10% SOLN 400 MG/4 ML VIAL NEB SCH ×3 (00:50→15:00)
[2019-03-13] MEDS: ALBUTEROL HALF STRENGTH 1.25 MG/3 ML VIAL.NEB NEB SCH ×4 (00:50→19:24)
--- NOTE | 2019-03-13 01:56 | NUR ---
RT NOTE CONTINUOS PULSE OX PLACED BEDSIDE.
[2019-03-13 04:00] VITALS: BP 133/76
[2019-03-13] MEDS: METOCLOPRAMIDE HCL 10 MG/2 ML VIAL IV SCH ×4 (05:09→23:02)
--- NOTE | 2019-03-13 07:20 | NUR ---
MAINSPRING FORMER ARBOR END OPENING NOTE: RECEIVED PT ON BED OBTUNDED WITH LABOURED BREATHING. ON BIPAP, SATURATING WELL. SINUS RHYTHM ON TELE MONITOR WITH PAC. GT INTACT AND PATENT, ABLE TO TOLERATE FEEDING WELL. NO SIGNS/SYMPTOMS OF ASPIRATION NOTED. HEAD OF BED KEPT ELEVATED. ZAMORA CATH INTACT, DRAINING WELL. SAFETY AND FALL PRECAUTIONS OBSERVED AND MAINTAINED. BED IN LOCKED/LOWEST POSITION. CALL LIGHT IN REACH. SRX3.WILL CONTINUE TO MONITOR.
[2019-03-13] MEDS: LORAZEPAM INJ 2 MG/ML VIAL IV PRN (07:44)
[2019-03-13 08:00] VITALS: BP 136/97
[2019-03-13] MEDS: FUROSEMIDE 20 MG/2 ML VIAL IV SCH (08:05)
[2019-03-13] MEDS: PANTOPRAZOLE 40 MG/PACK PACK GT SCH (08:05)
[2019-03-13] MEDS: BISACODYL (5 MG) 5 MG TABLET.DR GT SCH (08:05)
[2019-03-13] MEDS: LACTOBACILLUS RHAMNOSUS GG 1 EACH CAP.SPRINK GT SCH ×2 (08:05→17:31)
[2019-03-13] MEDS: MORPHINE SULFATE INJ 2 MG/ML DISP.SYRIN IV PRN ×3 (08:05→17:33)
[2019-03-13] MEDS: APIXABAN 2.5 MG TABLET GT SCH ×2 (08:06→18:07)
[2019-03-13 16:00] VITALS: BP_SYST 115; BP_DIAS 42; BP_DIAS 47
--- NOTE | 2019-03-13 16:30 | NUR ---
MS RN NOTE PATIENT HAS ELEVATED TEMP OF 100.2F,DR DURHAM NOTIFIED,REQUESTED TYLENOL.NO ORDER FOR TYLENOL .CONTINUE TO MONITOR.COLD APPLICATION DONE.
[2019-03-13] MEDS: JEVITY 1.2 CAL 1,000 ML BOTTLE GT PRN (17:31)
--- NOTE | 2019-03-13 18:17 | NUR ---
MS RN NOTE VISITED BY FAMILY, LOS.UPDATED ABOUT PATIENT CONDITION.SHE SAID SHE TALKED TO HOSPICE.WANT TO TALK TO PHOTOGRAPH RETOUCHER.PATRICK MADE AWARE.SPOKE TO PATRICK IN PHONE.UPDATED PHONE NUMBER,[phone].PHOTOGRAPH RETOUCHER MADE AWARE.WILL CONTINUE TO MONITOR. Addendum: 03/13/19 at 1830 by ADRIAN JESSICA RN PHOTOGRAPH RETOUCHER KAMILA
--- NOTE | 2019-03-13 18:30 | NUR ---
MS RN CLOSING NOTE: PT ON BED OBTUNDED .NO SOB NO DISTRESS NOTED. ON BIPAP, SATURATING WELL. GT INTACT AND PATENT, ABLE TO TOLERATE FEEDING WELL. NO SIGNS/SYMPTOMS OF ASPIRATION NOTED. HEAD OF BED KEPT ELEVATED. ZAMORA CATH INTACT, DRAINING WELL. SAFETY AND FALL PRECAUTIONS OBSERVED AND MAINTAINED. BED IN LOCKED/LOWEST POSITION. CALL LIGHT IN REACH. SRX3.REQUESTING FOR WIRE PHOTO OPERATOR BY FAMILY.HISTOPATH TECH KAMILA BUENO AWARE.HOSPICE PAPER WORK SIGNED BY RESPONSIBLE REPUBLICAN GIVEN TO PM NURSE.HISTOPATH TECH AWARE. ENDORSED TO PM NURSE FOR F/U AND CURTIS.
--- NOTE | 2019-03-13 19:25 | NUR ---
PT RECEIVED ON BIPAP 15/5,RATE 16 , FIO2 50%. BREATHING TX GIVEN PER MD'S ORDER., NO ADVERSE REACTION NOTED. NO RESPIRATORY DISTRESS NOTED AT THIS TIME. WOUND NOTED AROUND THE BRIDGE OF THE NOSE DURING 1ST ROUND , ADÁN BLAND NOTIFIED.
--- NOTE | 2019-03-13 19:44 | NUR ---
MS RN NOTES RECEIVED PT ON BED. A/O X 1. PT ON BIPAP, PT COMFORTABLE. ON GTUBE FEEDING NO RESIDUAL NOTED. IV ACCESS ON YESIKA MIDLINE PATENT AND INTACT. ON ZAMORA CATH DRAINING YELLOW URINE. HEAD OF BED ELEVATED. SIDE RAILS UP. CALL LIGHT WITHIN REACH. BED ALARM ON. WILL CONTINUE TO MONITOR PT CLOSELY.
[2019-03-13 20:00] VITALS: BP 96/56
[2019-03-14] MEDS: ACETYLCYSTEINE 10% SOLN 400 MG/4 ML VIAL NEB SCH ×3 (00:26→15:52)
[2019-03-14] MEDS: ALBUTEROL HALF STRENGTH 1.25 MG/3 ML VIAL.NEB NEB SCH ×4 (00:30→19:17)
[2019-03-14 04:00] VITALS: BP 99/45
[2019-03-14] MEDS: METOCLOPRAMIDE HCL 10 MG/2 ML VIAL IV SCH ×3 (05:06→17:04)
--- NOTE | 2019-03-14 07:02 | NUR ---
MS RN NOTES PT KEPT COMFORTABLE THROUGHOUT THE SHIFT. WILL ENDORSE TO THE AM NURSE FOR CONTINUITY OF CARE.
--- NOTE | 2019-03-14 07:15 | NUR ---
MAINTAINER CENTRAL OFFICE OPENING NOTE: RECEIVED BEDSIDE REPORT PT IN BED OBTUNDED ON BIPAP, SATURATING WELL TOLERATING SETTINGS GTF JEVITY 1.2 @ 40 ML/HR TOLERATE FEEDING WELL. NO SIGNS/SYMPTOMS OF ASPIRATION NOTED. HEAD OF BED KEPT ELEVATED. ZAMORA CATH INTACT, DRAINING WELL. SAFETY AND FALL PRECAUTIONS OBSERVED AND MAINTAINED. BED IN LOCKED/LOWEST POSITION. CALL LIGHT IN REACH. SRX3.WILL CONTINUE TO MONITOR.
--- NOTE | 2019-03-14 07:57 | NUR ---
RT NOTE RECEIVED PT ON BIPAP. SETTINGS PRESCRIBED. ALARMS SET PER PROTOCOL AND AUDIBLE. BIPAP PLUGGED IN TO RED OUTLET. PT NOTED TO HAVE REDNESS/SKIN DAMAGE AROUND BIPAP MASK AREA. MEPILEX IN PLACE. PT RESPONDS TO STIMULI. ANU HEARD UPON AUSCULTATION. THICK PALE YELLOW SECRETIONS FOUND UPON SUCTIONING. Addendum: 03/14/19 at 0759 by RADNALL SOTO RT Amended: Links added.
[2019-03-14 08:00] VITALS: BP 124/64
[2019-03-14] MEDS: APIXABAN 2.5 MG TABLET GT SCH (08:34)
[2019-03-14] MEDS: BISACODYL (5 MG) 5 MG TABLET.DR GT SCH (08:34)
[2019-03-14] MEDS: LACTOBACILLUS RHAMNOSUS GG 1 EACH CAP.SPRINK GT SCH ×2 (08:34→17:05)
[2019-03-14] MEDS: FUROSEMIDE 20 MG/2 ML VIAL IV SCH (08:35)
[2019-03-14] MEDS: PANTOPRAZOLE 40 MG/PACK PACK GT SCH (08:35)
[2019-03-14] MEDS ORDERED: MEROPENEM 1 G in IV NS 0.9% 100 ML IV ONE (15:00)
[2019-03-14 16:00] VITALS: BP_SYST 139; BP_SYST 159; BP_DIAS 95
--- NOTE | 2019-03-14 16:20 | NUR ---
RN MS NOTES PER DR JOHNSON DISCONTINUE BIPAP
[2019-03-14] MEDS: MORPHINE SULFATE INJ 2 MG/ML DISP.SYRIN IV PRN (17:04)
[2019-03-14] MEDS: JEVITY 1.2 CAL 1,000 ML BOTTLE GT PRN (18:16)
--- NOTE | 2019-03-14 18:34 | NUR ---
RN MS NOTES PATIENT TACHYPNEIC MORPHINE 2 MG GIVEN WITH POSITIVE RESULTS. AWAKE UNABLE TO FOLLOW COMMANDS BIPAP D/C ON NON-REBREATHER @10 LTRS SATURATING 100%. HOB <30 CONT GTF JEVITY 1.2 @ 40 ML/HR TOLERATING WELL NO N/V/D NOTED NO RESIDUALS. MIDLINE IN YESIKA # 18 GAUGE FLUSHED AND PATENT NO BLOOD RETURN. SCABBING TO NOSE AND FACE D/T BIPAP ZAMORA CATH PATENT DRAINING CLEAR YELLOW URINE. REPOSITIONED EVERY 2 HOURS FOR COMFORT. AWAITING FOR HOSPICE TO MEET WITH FAMILY. IS [place]ING TOWN NEXT CONTACT FOUND IN CHART. BED IN LOW POSITION SAFETY / ASPIRATION/ CONTACT PRECAUTIONS IN PLACE. KEPT CLEAN AND DRY ALL NEEDS MET BY STAFF. CALL LIGHT WITHIN REACH
--- NOTE | 2019-03-14 19:09 | NUR ---
RN CLOSING NOTES REPORT ENDORSED TO NOC
--- NOTE | 2019-03-14 20:01 | NUR ---
RN MS INITIAL NOTE: RECEIVED BEDSIDE REPORT PT IN BED OBTUNDED ON MASK @ 10 L, SATURATING WELL TOLERATING SETTINGS GTF JEVITY 1.2 @ 40 ML/HR TOLERATE FEEDING WELL. HOB ELEVATED FOR ASPIRATION NOTED. HEAD OF BED KEPT ELEVATED. ZAMORA CATH INTACT, DRAINING WELL. SAFETY AND FALL PRECAUTIONS . BED IN LOCKED/LOWEST POSITION. CALL LIGHT IN REACH. SRX3.WILL CONTINUE TO MONITOR.
[2019-03-14] MEDS ORDERED: MEROPENEM 1 G in IV NS 0.9% 100 ML IV SCH (21:00)
[2019-03-14] MEDS ORDERED: MEROPENEM 500 MG in IV NS 0.9% 50 ML IV SCH (21:00)
== END 2019-03-14 22:23 | disposition hospice, home (50) | DRG 871 ==
LOC: ER 16:55 → TELE-TD 20:20 → TELE1 03-04 10:18 → MEDSG1 03-13 08:55
PROVIDERS: ADMIT Internal Medicine; ATTEND Internal Medicine
PROC: 5A09557 Assistance with Respiratory Ventilation, Greater than 96 Consecutive Hours, Continuous Positive Airway Pressure (ICD-10-PCS; principal; 2019-03-03)
PROC: 05H533Z Insertion of Infusion Device into Right Subclavian Vein, Percutaneous Approach (ICD-10-PCS; 2019-03-04)
PROC: 0D20XUZ Change Feeding Device in Upper Intestinal Tract, External Approach (ICD-10-PCS; 2019-03-11)
DX: A41.9 Sepsis, unspecified organism (principal); J69.0 Pneumonitis due to inhalation of food and vomit; J96.91 Respiratory failure, unspecified with hypoxia; R65.21 Severe sepsis with septic shock; R53.2 Functional quadriplegia; N17.9 Acute kidney failure, unspecified; G93.40 Encephalopathy, unspecified; E87.0 Hyperosmolality and hypernatremia; E87.2 Acidosis; Z43.1 Encounter for attention to gastrostomy; E78.5 Hyperlipidemia, unspecified; I48.0 Paroxysmal atrial fibrillation; E86.0 Dehydration; I25.10 Atherosclerotic heart disease of native coronary artery without angina pectoris; E87.8 Other disorders of electrolyte and fluid balance, not elsewhere classified; D63.8 Anemia in other chronic diseases classified elsewhere; K21.9 Gastro-esophageal reflux disease without esophagitis; M24.562 Contracture, left knee; M24.561 Contracture, right knee; R13.10 Dysphagia, unspecified; Z66 Do not resuscitate; Z51.5 Encounter for palliative care; G30.9 Alzheimer's disease, unspecified; F02.80 Dementia in other diseases classified elsewhere, unspecified severity, without behavioral disturbance, psychotic disturbance, mood disturbance, and anxiety; F09 Unspecified mental disorder due to known physiological condition; Z22.322 Carrier or suspected carrier of Methicillin resistant Staphylococcus aureus; R62.7 Adult failure to thrive; I11.0 Hypertensive heart disease with heart failure; I50.9 Heart failure, unspecified; L89.529 Pressure ulcer of left ankle, unspecified stage; L89.519 Pressure ulcer of right ankle, unspecified stage
CPT/HCPCS: 31720; 36415; 36569; 36600; 71045-TC; 74018; 80048-TC; 80053-TC; 80076-TC; 81000-TC; 82728-TC; 82803-TC; 82962-TC; 83540-TC; 83605-TC; 83735-TC; 83880; 84100-TC; 84484-TC; 85025-TC; 85730-TC; 87040-TC; 87070-TC; 87081-TC; 87086-TC; 87186-TC; 94640-TC; 94660; 94760-TC; 94762-TC; A4216; A6253; A6402; A6403; G0378; J0696; J1940; J2060; J2185; J2270; J2543; J2765; J3490; J7030; J7040; J7042; J7050; J7060; Q9963

== ENCOUNTER 2019-03-14 23:13 | Inpatient (IN) | payer MEDICARE, OTHER ==
[~2019-03-14] VITALS: Ht 180.3 cm; Wt 72.6 kg
--- NOTE | 2019-03-14 20:00 | NUR ---
RN MS NOTE PT SEEN AND EVAL DONE BY HOSPICE NURSE, ASSESSED PT, ORDERS ENTERED, ADMIT TO SO /[facility], RESPONSIBLE REPUBLICAN [place] CONTACTED, ALREADY AWARE OF PLAN OF CARE DISCUSSED WITH DR JOHNSON, PT DNR COMFORT MEASURES ONLY. ADMIT CONTACTED, DC PT AND READMIT PT PER PROTOCOL.
--- NOTE | 2019-03-14 22:00 | NUR ---
RESIDENT MEDICAL OFFICER RE-ADMIT PT READMITTED UNDER HOSPICE CARE WITH [facility] ON GIP LEVEL OF CARE, ORDERS ENTERED AND CARRIED OUT, INITIAL AND PHYSICAL ASSESMENT DONE, PLAN OF CARE WILL BE MONITORED.
[~2019-03-14 23:13] MED LIST changes: +AMIN30LI27 GT; +AMLO2.5T4 GT; +APIX2.5T GT; +DIGO125T GT; +FERR300L GT; +FURO20TA4 PO; +LACT-96 GT; +LANS30CA56 GT
[2019-03-15] MEDS ORDERED: MORPHINE SULFATE INJ 2 MG/ML DISP.SYRIN IV PRN (00:30)
[2019-03-15] MEDS ORDERED: JEVITY 1.2 CAL 1,000 ML BOTTLE GT PRN (00:30)
[2019-03-15] MEDS ORDERED: LORAZEPAM INJ 2 MG/ML VIAL IV SCH (01:00)
[2019-03-15] MEDS: ALBUTEROL HALF STRENGTH 1.25 MG/3 ML VIAL.NEB NEB SCH ×4 (01:36→19:31)
[2019-03-15 04:00] VITALS: BP 121/62
[2019-03-15] MEDS ORDERED: MEROPENEM 1 G in IV NS 0.9% 100 ML IV SCH ×2 (05:00→13:00)
[2019-03-15] MEDS: METOCLOPRAMIDE HCL 10 MG/2 ML VIAL IV SCH ×3 (05:54→17:52)
--- NOTE | 2019-03-15 06:15 | NUR ---
SLIPCOVER CUTTER CLOSING NOTE PT ENDORSED UNDER HOSPICE CARE WITH [facility] ON GIP LEVEL OF CARE, ORDERS ENTERED AND CARRIED OUT, COMFORT MEASURES ONLY PER MD JOHNSON AND LIS, PLAN OF CARE WILL BE ENDORSED TO ON COMING AM RN ASSIGNED TO MONITOR CLOSELY..
[2019-03-15] MEDS: ACETYLCYSTEINE 10% SOLN 400 MG/4 ML VIAL NEB SCH ×2 (06:43→16:50)
--- NOTE | 2019-03-15 07:20 | NUR ---
SHOP TECH NOTES RECEIVED BEDSIDE REPORT. PATIENT IN BED A/O X0 OBTUNDED WITH SPONTANEOUS EYE OPENING. NO SIGNS OF RESPIRATORY DISTRESS ON 10 LTRS NON-REBREATHER MASK. SATURATING @100% GTF RUNNING @ 4O ML/HR TOLERATING WELL NO RESIDUALS. ZAMORA CATH PATENT DRAINING CLEAR YELLOW URINE VITALS STABLE SAFETY AND ASPIRATION PRECAUTIONS IN PLACE BED IN LOW POSITION WILL CONT TO MONITOR AND FOLLOW HOSPICE PROTOCOL.
[2019-03-15 08:00] VITALS: BP 118/55
[2019-03-15] MEDS ORDERED: FUROSEMIDE 20 MG/2 ML VIAL IV SCH (09:00)
--- NOTE | 2019-03-15 10:30 | NUR ---
RN NOTES PT GT LEAKING AT [place] SITE.WILL F/U WITH DR JOHNSON IN REGARDS TO FEEDING WITH HOSPICE CARE
--- NOTE | 2019-03-15 14:00 | NUR ---
RN NOTES SPOKE WITH DR JOHNSON IN REGARDS TO HOSPICE STATUS WITH CONT GTF. BRILLIANDEER LOPPER DOTTY [phone] WANTS CONFIRMATION IN REGARDS TO ORDERS. VERIFIED TO DISCONTINUE ANTIBIOTICS AND LASIX PER CONVERSATION THAT DR JOHNSON HAD WITH JACK MADISON WANTS TO CONT TO HAVE GTF FOR COMFORT.
[2019-03-15] MEDS: LORAZEPAM INJ 2 MG/ML VIAL IV PRN (15:34)
[2019-03-15 16:00] VITALS: BP 115/50
--- NOTE | 2019-03-15 18:57 | NUR ---
RN CLOSING HOSPICE NOTES PATIENT IN BED A/O X0 OBTUNDED WITH SPONTANEOUS EYE OPENING. NO SIGNS OF RESPIRATORY DISTRESS ON 10 LTRS NON-REBREATHER MASK. SATURATING @100% GTF RUNNING @ 4O ML/HR TOLERATING WELL NO RESIDUALS. ZAMORA CATH PATENT DRAINING CLEAR YELLOW URINE VITALS STABLE SAFETY AND ASPIRATION PRECAUTIONS IN PLACE BED IN LOW POSITION WILL CONT TO MONITOR AND HOSPICE PROTOCOL FOLLOWED
--- NOTE | 2019-03-15 19:20 | NUR ---
PLANT ETIOLOGIST NOTES, PATIENT IN BED WITH EYES CLOSED AT THIS TIME, OBTUNDED OPEN EYES SPONTANEOUSLY, NO SIGNS OF SOB/ACUTE RESPIRATORY DISTRESS NOTED AT THIS TIME, ON 10 LTRS NON-REBREATHER MASK, WITH OPTIMAL O2 SAT LEVEL 99-100%, GTF INFUSING WELL AND PATIENT TOLERATED WELL, ON JEVITY 4O ML/HR TOLERATING WELL NO RESIDUAL NOTED AT THIS TIEMME, ZAMORA CATH PATENT DRAINING CLEAR YELLOW URINE VITALS STABLE SAFETY AND ASPIRATION PRECAUTIONS IN PLACE BED IN LOW POSITION WILL CONT TO MONITOR AND HOSPICE PROTOCOL FOLLOWED
--- NOTE | 2019-03-15 19:33 | NUR ---
RN MS CLOSING NOTES REPORT ENDORSED TO NOC SHIFT
[2019-03-15] MEDS: ACETAMINOPHEN 325 MG/SUPP.RECT RC PRN (19:58)
[2019-03-15 20:00] VITALS: BP 123/68
[2019-03-16 00:05] VITALS: BP 126/59
[2019-03-16] MEDS: METOCLOPRAMIDE HCL 10 MG/2 ML VIAL IV SCH ×4 (00:28→17:55)
--- NOTE | 2019-03-16 00:40 | NUR ---
RN NOTES, ENDORSED PATIENT TO ADÁN REESE FOR CONTINUITY OF CARE, NO SOB/RESPIRATORY DISTRESS NOTED AT THIS TIME, CONTINUE ON 10L NONREBREATHER MASK.
--- NOTE | 2019-03-16 00:41 | NUR ---
INDEPENDENT CONTRACTOR NOTE PATIENT RECEIVED IN BED, OBTUNDED WITH SPONTANEOUS EYE OPENING. PATIENT RESPONDS TO PAIN. NO S/S OF RESP DISTRESS. GTF RESIDUAL MINIMAL. PATIENT ON 10 L NON-REBREATHER MASK. ZAMORA CARE GIVEN. SAFETY PRECAUTIONS IN PLACE. BED IN LOWEST LOCKED POSITION, RN WILL CONTINUE TO MONITOR.
[2019-03-16] MEDS: ALBUTEROL HALF STRENGTH 1.25 MG/3 ML VIAL.NEB NEB SCH ×3 (01:29→14:55)
[2019-03-16] MEDS: ACETYLCYSTEINE 10% SOLN 400 MG/4 ML VIAL NEB SCH ×4 (01:29→22:59)
[2019-03-16 04:00] VITALS: BP 105/47
--- NOTE | 2019-03-16 07:15 | NUR ---
PAYROLL HUMAN RESOURCES ASSISTANT NOTE PATIENT TOLERATED THE NIGHT WELL NO PHYSIOLOGICAL S/S OF DISTRESS OR PAIN/DISCOMFORT. FLACC SCORE 0. POC ENDORSED TO AM SHIFT FOR CURTIS.
[2019-03-16 08:00] VITALS: BP 117/50
[2019-03-16] MEDS: LORAZEPAM INJ 2 MG/ML VIAL IV PRN (10:57)
[2019-03-16] MEDS: ACETAMINOPHEN 325 MG/SUPP.RECT RC PRN (13:45)
[2019-03-16 16:00] VITALS: BP 141/67
[2019-03-16] MEDS ORDERED: KEY,NONCONTROL,TO KEEP IN PYXI 1 EA MC ONE (17:24)
[2019-03-16 20:00] VITALS: BP 104/45
--- NOTE | 2019-03-16 20:01 | NUR ---
RN NOTES RECEIVED PATIENT, ON COMMFORT MEASURES, NO SIGNS OF ACUTE RESPIRATORY DISTRESS NOTED, IV ACCESS INTACT AND PATENT MORPHINE DRIP, INFUSING WELL, NO FACIAL GRIMACING NOTED AT THIS TIME, GT INTACT ANT PATENT, ZAMORA CATHETER INTACT AND PATENT DRAINING TO A YELLOW JOSE URINE, ALL NEEDS ATTENDED, WILL MONITOR ACCORDINGLY.
[2019-03-16 22:56] VITALS: BP 104/45
[2019-03-17] VITALS (7 sets, daily range): BP systolic 94–122; BP diastolic 47–51
[2019-03-17] MEDS: METOCLOPRAMIDE HCL 10 MG/2 ML VIAL IV SCH ×2 (01:01→05:31)
--- NOTE | 2019-03-17 07:29 | NUR ---
RN NOTES ALL NEEDS ATTENDED AND MET, ALL COMFORT MEASURES PROVIDED, REPOSITIONED ACCORDINGLY, NO SIGNS OF ACUTE DISTRESS NOTED THROUGHOUT THE SHIFT, ZAMORA CATH URINE OUTPUT IS 200ML JOSE IN COLOR, ON 3LMP OF O2 VIA NC, ENDORSED TO AM NURSE FOR CONTINUITY OF CARE.
[2019-03-17] MEDS ORDERED: ACETYLCYSTEINE 10% SOLN 400 MG/4 ML VIAL NEB PRN (09:00)
[2019-03-17] MEDS ORDERED: KEY,NONCONTROL,TO KEEP IN PYXI 1 EA MC ONE (17:40)
--- NOTE | 2019-03-17 19:00 | NUR ---
RN NOTE COMFORT MEASURES PROVIDED, BREATHING IRREGULAR, SHALLOW, OCCASIONAL GRIMACING AND MOANING UPON TURNING. ZAMORA CATH URINE OUTPUT IS 200 ML JOSE, ON 3LMP OF O2 VIA NC, ENDORSED TO ENGINEERING ASSISTANT NURSE FOR CONTINUITY OF CARE.
--- NOTE | 2019-03-17 19:41 | NUR ---
RN OPENING NOTES RECEIVED REPORT FROM REGLA MCCAIN. PATIENT NON-VERBAL & W/ SPONTANEOUS EYE OPENING NOTED. RESPONDS TO TACTILE STIMULI. BREATHING EVEN & UNLABORED, TOLERATING O2 @ 3LPM VIA NC. NO S/S OF RESPIRATORY DISTRESS. RADIAL PULSES PRESENT BUT WEAK. RIGHT UPEPR ARM MIDLINE INTACT & PATENT W/ DRESSING CDI & MORPHINE DRIP INFUSING WELL @ 2MG/HR. NO S/S OF PAIN OR DISCOMFORT @ THIS TIME. SAFETY MEASURES IN PLACE W/ SIDE RAILS & BED ALARM ON. HOB ELEVATED FOR ASPIRATION PRECAUTIONS. TURNED & REPOSITIONED FOR COMFORT. WILL CONTINUE TO MONITOR.
[2019-03-17] MEDS: LORAZEPAM INJ 2 MG/ML VIAL IV PRN (21:34)
[2019-03-18 04:00] VITALS: BP 106/40
[2019-03-18] MEDS: LORAZEPAM INJ 2 MG/ML VIAL IV PRN ×4 (04:25→17:03)
[2019-03-18 08:00] VITALS: BP 108/46
[2019-03-18] MEDS: ACETAMINOPHEN 325 MG/SUPP.RECT RC PRN ×2 (09:44→17:03)
[2019-03-18] MEDS ORDERED: KEY,NONCONTROL,TO KEEP IN PYXI 1 EA MC ONE ×2 (15:26→19:24)
[2019-03-18 15:51] VITALS: BP 79/36
[2019-03-18 16:00] VITALS: BP 79/36
[2019-03-18 20:00] VITALS: BP 78/42
--- NOTE | 2019-03-18 20:00 | NUR ---
RN/MS NOTES: RECEIVED PT. IN BED OBTUNDED W/ EYES OPENS AT TIMES. W/ O2 @ 3LPM VIA N/C SAT. 91%. NO FACIAL GRIMACES OR MOANING NOTED. RESPONDS TO TACTILE STIMULI. NO S/S OF RESPIRATORY DISTRESS. YESIKA MIDLINE INTACT AND PATENT W/ NO S/S OF INFECTION/INFILTRATION NOTED. W/ MORPHINE DRIP INFUSING WELL AT 5 MG /HR. HOB ELEVATED. CALL LIGHT W/ REACH. WILL CONTINUE TO MONITOR.
[2019-03-18 22:00] VITALS: BP 78/42
[2019-03-19 04:00] VITALS: BP 76/39
--- NOTE | 2019-03-19 07:13 | NUR ---
RN/MS NOTES: REPORT GIVEN TO NEXT SHIFT NURSE . STILL ON MORPHINE DRIP AT 5MG/HR.
--- NOTE | 2019-03-19 07:15 | NUR ---
RN OPENING NOTE RECEIVED PATIENT IN BED. ON HOSPICE CARE. ON HIS MAX DOSE OF MORPHINE DRIP RUNNING ON HIS RIGHT UPPER ARM MIDLINE. OBTUNDED AND NON VERBAL. ON 3L NC O2. NO VISIBLE DISTRESS NOTED. HAS A ZAMORA CATH. BED LOCKED AND LOWEST POSITION. WILL CONTINUE TO MONITOR CLOSELY
[2019-03-19 08:00] VITALS: BP 71/37
[2019-03-19 10:00] VITALS: BP 71/37
[2019-03-19 12:00] VITALS: BP 105/60
--- NOTE | 2019-03-19 12:46 | NUR ---
RN NOTE PATIENT STILL ON MORPHINE DRIP. 100% SATURATION. NO VISIBLE DISTRESS. BREATHING LABORED. TURNING AND REPOSITIONING PER PROTOCOL.
[2019-03-19 16:00] VITALS: BP_SYST 102; BP_SYST 95; BP_DIAS 52; BP_DIAS 64
[2019-03-19] MEDS ORDERED: KEY,NONCONTROL,TO KEEP IN PYXI 1 EA MC ONE ×2 (16:04→20:47)
--- NOTE | 2019-03-19 18:48 | NUR ---
RN NOTE PATIENT AWAKE, WITH EYES OPEN. DR JOHNSON CAME IN TO SEE THE PATIENT. NO NEW ORDERS. CONT OF COMFORT MEASURES ONLY. HAS A RIGHT UPPER ARM MIDLINE WITH MORPHINE DRIP ON MAX DOSE OF 5MG. ON 3L O2 NC. WILL ENDORSE TO NOC SHIFT RN FOR CONT OF CARE
[2019-03-19 20:00] VITALS: BP 71/39
[2019-03-19] MEDS ORDERED: ACETAMINOPHEN 650 MG/SUPP.RECT RC ONE (21:16)
[2019-03-20 04:00] VITALS: BP 75/40
--- NOTE | 2019-03-20 07:07 | NUR ---
RN/HOSPICE NOTES: REPORT GIVEN TO AM NURSE FOR CURTIS. CONTINUE W/ MORPHINE DRIP 5 MG/HR.
--- NOTE | 2019-03-20 07:25 | NUR ---
RN OPENING NOTES RECEIVED PATIENT IN BED AWAKE, WITH EYES OPEN. NO VISIBLE DISTRESS WAS NOTED. ON A MAX DOSE OF MORPHINE DRIP. HAS A ZAMORA CATH WITH LITTLE TO NO AMOUNT OF URINE OUT. ON 3L NC, SATING >90%. CONTINUE FOR COMFORT MEASURES TODAY.
[2019-03-20 08:00] VITALS: BP 83/42
--- NOTE | 2019-03-20 08:30 | NUR ---
RN NOTE DE ICER ELEMENT WINDER FROM HOSPICE ADVISED ME TO GIVE ATIVAN PRN Q2H. PATIENT'S EYES CONSTANTLY OPEN
[2019-03-20] MEDS: LORAZEPAM INJ 2 MG/ML VIAL IV PRN ×2 (08:36→10:36)
--- NOTE | 2019-03-20 11:24 | NUR ---
RN NOTE PATIENT PASSED AT 1120.
--- NOTE | 2019-03-20 11:37 | NUR ---
GOLD LEAF GILDER NOTES 1120 - NO PULSE, NOT BREATHING. NO SIGNS OF LIFE. PRONOUNCED AT 1120. PRIMARY NURSE RANDALL AND THIS NURSE AT BEDSIDE. 1125 - CALLED [facility]. REFERENCE NUMBER [id number] - NURSING TOBACCO PACKING MACHINE OPERATOR AND HOSPICE INFORMED 1128 - MARY ADMITTING INFORMED 1135 - DR. JOHNSON NOTIFIED.
--- NOTE | 2019-03-20 12:45 | NUR ---
RN NOTE HOSPICE NURSE CAME IN [facility] CALLED AND ETA AT 1400
--- NOTE | 2019-03-20 14:16 | NUR ---
RN NOTE [facility] IS HERE TO TRACTOR OPERATOR BATTERY THE BODY
== END 2019-03-20 11:20 | disposition expired | DRG 189 ==
LOC: HOSPICE1 23:13
PROVIDERS: ADMIT Internal Medicine; ATTEND Internal Medicine
PROC: 05H533Z Insertion of Infusion Device into Right Subclavian Vein, Percutaneous Approach (ICD-10-PCS; principal; 2019-03-15)
PROC: B546ZZA Ultrasonography of Right Subclavian Vein, Guidance (ICD-10-PCS; principal; 2019-03-15)
DX: J96.11 Chronic respiratory failure with hypoxia (principal); A41.9 Sepsis, unspecified organism; J69.0 Pneumonitis due to inhalation of food and vomit; G93.40 Encephalopathy, unspecified; I48.0 Paroxysmal atrial fibrillation; F03.90 Unspecified dementia, unspecified severity, without behavioral disturbance, psychotic disturbance, mood disturbance, and anxiety; Z51.5 Encounter for palliative care; Z66 Do not resuscitate; Z93.1 Gastrostomy status; F09 Unspecified mental disorder due to known physiological condition; D63.8 Anemia in other chronic diseases classified elsewhere; E87.8 Other disorders of electrolyte and fluid balance, not elsewhere classified
CPT/HCPCS: 94760-TC; 94762-TC; 94799-TC; A6253; G0378; J1940; J2060; J2185; J2270; J2274; J2765; J7030; J7050